=== PATIENT | female | born 1940 | race Caucasian/White ===

== ENCOUNTER 2019-11-25 10:52 | Day surgery (SDC) | payer MEDICARE, SELFPAY ==
--- NOTE | 2019-10-31 10:08 | PCM.HP.BLA ---
History and Physical Date of Admission: 11/03/19 Cristine Hernandez Builder 1940 ? ? REFERRING PHYSICIAN: Kayli Duncan MD ? CHIEF COMPLAINT: Inguinal Hernia Repair-2 ? HPI: The patient is a 78 year old female presents with possible right inguinal hernia repair. She denies pain in the area, occasional mild discomfort. She states that she notes a bulge in the area. Denies history of incarceration. Denies GI/ obstructive symptoms. Denies previous abdominal wall hernias. She states that she has noted this bulge for the past few months. ? CT scan 10/17/2019 IMPRESSION: Right inguinal hernia containing nonobstructed small bowel. Colonic diverticulosis with no features to indicate acute diverticulitis. ? PAST MEDICAL HISTORY ? Arthritis of both knees ? ? Mr Moyer/Dr Lino , Ortho 2016, 2015 ? Basal cell carcinoma 04/2018 ? Bilateral renal cysts ? ? Dr Shaver 2014, FU one year , Dr Ortiz saw 09/2010, to see in one year ? Colon cancer screening 07/14/2015 ? 07/2015 Colonoscopy Diverticulosis small portion of cecum not visualized Exam was otherwise normal repeat [address] Borjas(see scanned ? Diverticulosis of colon (without mention of hemorrhage) ? ? Hearing loss ? ? Bilateral hearing aids ? Nonspecific (abnormal) findings on radiological and other examination of lung field ? ? Dr [facility] saw 2008, 2009, released, CT Thorax R Pneumomatcele/Nodules since07/2007 ? Obesity (BMI 30.0-34.9) ? ? Osteopenia ? ? DXA scan 2018, 2014, 2008 ? Recurrent UTI ? ? Dr. Palomares ? Skin cancer/BCE ? ? Dr Bah saw 01/2016, Fu one year, 10/2015, FU 6 months, 2014, 01/2014 following ? Unspecified disorder of lipoid metabolism ? ? Unspecified essential hypertension ? ? Unspecified hypothyroidism ? ? Whooping cough due to Bordetella pertussis (p. pertussis) ? ? as a child ? PAST SURGICAL HISTORY ? PAST SURGICAL HISTORY OF ? 2004 ? Colonoscopy 2004.Diverticulosis Repeat 8 years ? PAST SURGICAL HISTORY OF ? 07/27/04 ? Dr OrtegaTransvaginal cystocele repair, rectocele repair and placement of porcine dermis mesh patch. ? PAST SURGICAL HISTORY OF ? ? ? Cataracts OS Dr Holt ? PAST SURGICAL HISTORY OF ? 07/2015 ? colonoscpy Diverticulosis, small portion of cecum not visualized, otherwise normal repat [address] Borjas (see scanned report) ? PAST SURGICAL HISTORY OF Left remote ? cyst removed from neck ? PAST SURGICAL HISTORY OF Left 05/16/2017 ? total knee ? PAST SURGICAL HISTORY OF ? ? ? mohs procedure for right cheek basal cell ? REMOVAL GALLBLADDER ? 07/23/03 ? Laparoscopic cholecystectomy with cholangiograms. ? REMOVE TONSILS/ADENOIDS,<12 Y/O ? AGE 7 ? Tonsil/adenoidectomy ? REPAIR UMBILICAL CHERELLE,5+Y/O,REDUC ? 02/02/05 ? Repair of ventral hernia with Ventrelex mesh. Right total knee replacement ? ? ? Current Outpatient Medications ? fluocinolone (SYNALAR) 0.025 % ointment Apply to affected area as directed. pea-sized amount to vulva qhs 2-3 nights a week ? cephALEXin (KEFLEX) 250 mg capsule Take 250 mg by mouth once daily. ? levothyroxine (SYNTHROID) 137 mcg tablet Take 1 tablet by mouth once daily. ? lisinopril (ZESTRIL, PRINIVIL) 5 mg tablet Take 1 tablet by mouth once daily. ? estradiol (ESTRACE) 0.01 % (0.1 mg/gram) vaginal cream Use 1 g vaginally one time a week. ? CRANBERRY FRUIT EXTRACT (CRANBERRY ORAL) Take by mouth every 48 hours. Takes 1 tablet daily ? ? calcium carbonate/vitamin d3(CALTRATE-600 PLUS VITAMIN D3 600 MG-400 UNIT TAB) Take one(1) tablet two(2) times daily. ? GLUCOSAMINE SULFATE 1,000 MG CAP TAKE ONE TAB DAILY ? CENTRUM SILVER TAB TAKE ONE TAB DAILY ? ? ALLERGIES: Bactrim [Sulfamethoxazole-Trimethoprim] ? PERSONAL HISTORY: ? Smoking status: Never Smoker ? Smokeless tobacco: Never Used Substance Use Topics ? Alcohol use: No ? ? Frequency: Never ? ? Drinks per session: Patient refused ? ? Binge frequency: Never ? Drug use: No ? FAMILY HISTORY ? Alzheimer's Disease Father ? ? Stroke Mother ? ? AGE 85 ? Hypertension Mother ? ? Heart Mother ? ? Ischemic Heart Disease Mother ? ? Psychiatry Maternal Grandfather ? ? SUICIDE ? other (ALS) Paternal Grandfather ? ? RICKY GERIGS DIS ? Stroke Maternal Grandmother ? ? other (No Ca Colon or Breast) Other ? ? Ovarian cancer No Family History ? ? other (no DM) Other ? ? ? REVIEW OF SYSTEMS: General: The patient denies fatigue, denies weight loss, denies weight gain, denies feeling hot, and denies feelings of cold. Eyes: The patient denies glaucoma, NOTES eye injury/surgery, wears glasses or contacts. Ear/Nose/Throat: The patient denies allergies, denies hayfever, denies ear infections, and denies bloody noses. Cardiovascular: The patient denies chest pain, denies heart disease, denies high blood pressure,denies cardiac stent, denies prior heart attack, NOTES irregular heart beat, denies high cholesterol, denies poor circulation, denies heart failure, other cardiac issues, denies claudication, denies cold feet, denies peripheral arterial stent. Respiratory: The patient denies tuberculosis, denies pneumonia, denies frequent cough, denies pulmonary embolism, denies shortness of breath, and denies coughing up blood. Gastrointestinal: The patient denies difficulty swallowing, denies acid reflux, denies ulcers, denies vomiting, denies jaundice/hepatitis, denies gallbladder problems, denies black or tarry stools, denies hemorrhoids, denies bleeding from rectum, NOTES diverticulitis, denies constipation, denies diarrhea, denies loss of stool control, and denies hernias. Kidney/Bladder: has urinary frequency/urgency, denies kidney stones, NOTES urine infections, and denies bloody urine. Skin: The patient NOTES a history of skin cancer, denies bleeding/changing moles, and denies a history of skin rash. Neurologic: The patient denies a history of epilepsy/convulsions, denies headaches, denies head/spinal injuries, and denies stroke/TIA. Psychiatric: The patient denies psychiatric medications, denies depression, and denies voices, denies substance abuse. Endocrine: The patient NOTES thyroid disorders, denies diabetes, and denies hormonal problems. Hematologic: The patient denies a history of bruising, denies bleeding, and denies anemia, denies blood clots. Infections: The patient denies a history of measles and mumps, denies rheumatic fever, and denies sexually transmitted diseases. Musculoskeletal: The patient denies back pain/injury, denies back problems, denies sciatica, NOTES knee/foot trouble, NOTES arthritis, or denies gout. ? PHYSICAL EXAMINATION: General: The patient is 78 year old female, well nourished, well hydrated in no acute distress. The patient is oriented to time, place, and person. VITALS: Blood pressure 158/84, pulse 88, temperature 36.3 ?C (97.3 ?F), temperature source Temporal, resp. rate 16, height 162.6 cm (5' 4), weight 91.6 kg (202 lb), SpO2 96 %. Body mass index is 34.67 kg/m?. Head ? Normocephalic. EOM intact with sclera clear and no icterus noted. Mouth with mucus membranes moist. Neck - supple with no jugular venous distention noted. Trachea is midline. Lungs ? clear to auscultation. Normal breath sounds. No rales/rhonchi/wheezing noted. No labored breathing noted, such as retractions. No cough heard. Heart ? normal S1 and S2 auscultated. No rubs/clicks/murmurs noted. Regular rate. Abdomen ? soft and benign. Normal bowel sounds Difficult to determine if any masses or organomegaly due to body habitus. Patient points to right groin area, I cannot detect a hernia but examination is suboptimal, patient has increased peripubic fatty tissues Extremities ? no calf tenderness noted. No pitting edema noted. Skin ? normal skin integrity. Neurological ? gait normal, no focal deficits noted. Psych ? calm and appropriate ? IMPRESSION: right inguinal hernia with incarcerated bowel ? PLAN: I have discussed the above with the patient. I have offered the patient the procedure of open right inguinal hernia repair with mesh. I have explained the procedure to the patient. I have counseled the patient as to the risks of the procedure, including but not limited to: infection, bleeding, injury to any blood vessels/nerves, scar tissue, injury to any intraabdominal organs, injury to bowel/bladder, intraabdominal abscess/bleeding, recurrence of hernia, wound infections, complications of anesthesia, postoperative pneumonia/cardiac problems/blood clots etc. the patient understands. She agrees to proceed. I have answered all questions to the patient?s satisfaction and the patient has no further questions.
--- NOTE | 2019-11-21 10:00 | EKG12_ITS ---
Test Reason : PREOP Blood Pressure : / mmHG Vent. Rate : 065 BPM Atrial Rate : 065 BPM P-R Int : 150 ms QRS Dur : 086 ms QT Int : 398 ms P-R-T Axes : 008 009 016 degrees QTc Int : 413 ms Normal sinus rhythm Normal ECG Confirmed by CRAIG BAPTISTE MD ([id number]), videotape editor CAMI SHANKS ([id number]) on 11/25/2019 2:37:46 PM Referred By: Tanya Beal Confirmed By:CRAIG BAPTISTE MD
[2019-11-21 11:23] LABS: Thyroid Stim Hormone (TSH) 1.26 uIU/mL (0.358-3.74)
[2019-11-25] VITALS (8 sets, daily range): BP systolic 158–179; BP diastolic 81–92; PULSE 66–89; RESP 16–18; TEMP 36.1–37.1; O2SAT 93–98; BMI 34.4
[2019-11-25] MEDS: Lactated Ringers 1,000 ML 75 ML IV (11:38)
--- NOTE | 2019-11-25 12:29 | DCINST_ITS ---
Discharge Diet: No Restrictions Discharge Activity: Return to Normal Activity, May not drive while taking narcotic pain medications. Lifting Restrictions: no lifting greater than 50 pounds for a month Call your doctor if your incision/area has: Continuous Slow Oozing, Foul Smelling Discharge Call your doctor if you observe: Fever of 101 or Higher Additional Dressing/Incision Instructions:: leave dressings in place. may get wet in shower. do not soak - no tub baths/swimming Allergies/Adverse Reactions: Allergies sulfamethoxazole [From Bactrim] Allergy (Verified 11/25/19 11:15) Hives trimethoprim [From Bactrim] Allergy (Verified 11/25/19 11:15) Hives Medications to take at Discharge Levothyroxine [Synthroid] 125 mcg PO DAILY 04/08/17 Lisinopril [Zestril] 5 mg PO DAILY 04/08/17 Calcium (Elemental) [Os-Warren 500] 500 mg PO BID 11/20/19 Cephalexin [Keflex] 250 mg PO DAILY 11/20/19 Gluc Fragoso/Chondro Fragoso A/Vit C/Mn [Glucosamine-Chondroitin Cap] 1 ea PO DAILY 11/20/19 Multivit-Min/Iron/Folic/Lutein [Centrum Silver Women Tablet] 1 ea PO DAILY 11/20/19 Primary Care Physician: Nelson Ascencio MD [Primary Care Provider] - Test Results: Test results from this visit will be discussed in further detail at your follow- up appointment, if applicable. Please Follow Up With: Tanya Beal MD - When: a virtual visit will be set up by our clinic, if any problems, please call
[2019-11-25] MEDS: Cefazolin 2 GM in 0.9% Normal Saline 100 ML IV (12:42)
--- NOTE | 2019-11-25 13:37 | OP.PCM_ITS ---
Report of Operation Date of Procedure: 11/25/19 Pre-Operative Diagnosis: right inguinal hernia with incarcerated bowel Post-Operative Diagnosis: right inguinal hernia with incarcerated bowel - direct and femoral Surgery/Procedure Performed:: right femoral/inguinal hernia repair with mesh Description of Surgical Findings:: right inguinal femoral hernia with incarcerated small bowel, right direct inguinal hernia, no indirect inguinal hernia sac noted configuration developer: Pravin Galeana Type of Anesthesia:: General Anesthesiologist: Kevin Rae Specimen's removed: none Estimated Blood Loss (mL): 20 ml Fluids Replaced: 1200 ml RL Description of Procedure: After informed consent was obtained, patient was brought to the Operating Room. Appropriate time out protocol was followed. She was then placed in the supine position. The patient was then placed under anesthesia. The lower torso and the right groin area and genitalia were then prepped with a surgical skin preparation and appropriate sterile surgical drapes were placed. The anatomical landmarks were identified and after anesthetizing the skin and subcutaneous tissues with 0.25% Marcaine with epinephrine, a transverse skin incision was made above the level of the internal inguinal ring. The subcutaneous tissues were then sharply dissected down to the external oblique fascia and any hemorrhage was adequately controlled with electrocoagulation. The external oblique was then divided obliquely along the fibers and a muscle-splitting incision was then made to divide the internal oblique musculature and fascia. The transversalis fascia was then identified and was then incised parallel to the inferior hypogastric vessels. The preperitoneal space was then entered. Blunt dissection was then done to identify out Facundo's ligament, the pubic tubercle and a large area surrounding these landmarks for placement of the mesh. The right iliac vessels were identified. The patient did have a small femoral hernia. The round ligament was identified, there was no indirect hernia sac noted. The patient did have a large direct fascial defect in Hasselbach's triangle. A large right sided Bard 3D mesh was then placed in the preperitoneal space such that it would be overlapping medially beyond the pubic tubercle and overlapping inferior to Facundo's ligament. A 5 mm tacker was then used to tack the medial aspect of the mesh to the pubic tubercle. The patient was then placed in the reversed [place] position to ensure that the mesh was laid out flattened against the anterior abdominal wall. The mesh covered the entire wound opening also. The internal oblique fascia was then closed using interrupted 0 prolene suture. One of the sutures was used to lock the mesh into position. Hemostasis was carefully controlled with electrocoagulation. The external oblique fascia was then reapproximated using a running 0 Vicryl suture. This was carefully done to avoid any entrapment of blood vessels/nerves. Kevin's fascia was closed using Vicryl suture in an interrupted simple fashion. The skin incision was closed with 4-0 Monocryl in a running subcuticular fashion. Cavilon and Steri-Strips were used to reinforce the skin closure and appropriate sterile dressing was applied. The patient was extubated. The patient was brought to the Recovery Room in stable condition. Grafts/Implants Used: Bard 3D mesh right sided large lot [id number] tacker LOT [id number] - Complications none noted - Admit VTE Documentation VTE Present on Admission: Yes VTE Mechan Device Prophylaxis: SCD's
[2019-11-25] MEDS: Bupivacaine 0.25% 30 ML Vial (13:45)
== END 2019-11-25 15:54 | disposition home or self-care (01) ==
LOC: SDC 10:53 → AC 10:54
PROVIDERS: Anesthesiology; PCP Family Medicine; Referring Provider Surgery; Visit Provider Surgery
PROC: (CPT 49505; principal; 2019-11-25 12:15)
DX: K41.30 Unilateral femoral hernia, with obstruction, without gangrene, not specified as recurrent (principal); K40.90 Unilateral inguinal hernia, without obstruction or gangrene, not specified as recurrent; K58.9 Irritable bowel syndrome, unspecified; I10 Essential (primary) hypertension; E03.9 Hypothyroidism, unspecified; E66.9 Obesity, unspecified; M81.0 Age-related osteoporosis without current pathological fracture; Z79.899 Other long term (current) drug therapy; Z11.59 Encounter for screening for other viral diseases; Z85.828 Personal history of other malignant neoplasm of skin
CPT/HCPCS: 49505; 49553; 36415; 84443; 87635; 93005; G2023; J7120; C1781; J2405; U0004

== ENCOUNTER 2022-06-17 02:11 | Inpatient (IN) | payer MEDICARE, SELFPAY ==
[2022-06-17] VITALS (13 sets, daily range): BP systolic 127–152; BP diastolic 60–73; PULSE 69–99; RESP 15–22; TEMP 36.2–37.1; O2SAT 80–99; BMI 35.0; BMI 33.3
--- NOTE | 2022-06-17 02:28 | EKG12_ITS ---
Test Reason : DYSRHYTHMIA Blood Pressure : / mmHG Vent. Rate : 101 BPM Atrial Rate : 101 BPM P-R Int : 144 ms QRS Dur : 092 ms QT Int : 342 ms P-R-T Axes : 022 012 003 degrees QTc Int : 443 ms Sinus tachycardia Inferior infarct , age undetermined Abnormal ECG Confirmed by GANGA PEREZ, TOSHIA ([id number]), electronic news gathering editor AUDREY SMITH ([id number]) on 06/19/2022 1:05:59 PM Referred By: SCOOTER Confirmed By:TOSHIA SCHULER MD
--- NOTE | 2022-06-17 02:40 | EDS_ITS ---
HPI History of Present Illness Chief Complaint: Flank Pain Informant: patient Narrative Narrative: Patient presents with episode of right upper quadrant pain. She describes it as being below my rib. She states it is now gone. She really denied any notable cough. She denied it going up into her chest. It may have gone into her back just slightly but mostly was anteriorly. Nothing seem to make it better or worse but it is gone. She has history of frequent UTIs but is not having urinary symptoms. She is on longstanding cephalexin for this. She has had prior cholecystectomy in approximately 2003. [facility] Medical History Hearing loss, left Hearing loss, right Hernia Hypertension Hypothyroidism Osteoporosis Wears hearing aid in both ears Home Medications levothyroxine 125 mcg tablet 125 mcg PO DAILY 04/08/17 [History Last Taken 11/25/19 07:30 125 MCG] lisinopril 5 mg tablet 5 mg PO DAILY 04/08/17 [History Last Taken 11/25/19 07:30 5 MG] calcium carbonate 500 mg calcium (1,250 mg) tablet 500 mg PO BID 11/20/19 [History Last Taken Unknown] cephalexin 250 mg capsule 250 mg PO QMWF 11/20/19 [History Last Taken Unknown] ecllkjgrpjj-ghwkdkkpf-cav C-Mn 500 mg-400 mg capsule 1 ea PO BID 11/20/19 [History Last Taken Unknown] multivit with ogozloed-qacu-AW-lutein 8 mg iron-400 mcg-300 mcg tablet 1 ea PO DAILY 11/20/19 [History Last Taken Unknown] Allergy/AdvReac Type Severity Reaction Status Date / Time sulfamethoxazole Allergy Hives Verified 06/17/22 02:15 [From Bactrim] trimethoprim [From Bactrim] Allergy Hives Verified 06/17/22 02:15 Surgical History History of cholecystectomy History of left knee replacement History of total right knee replacement Social History Smoking Status: Never smoker ROS ROS ED Constitutional Constitutional ED: Denies fever(s) or subjective ENT ENT ED: Denies rhinorrhea or sore throat Cardiovascular Cardiovascular: Denies chest pain or palpitations Respiratory/Chest Respiratory/Chest: Denies cough or dyspnea Gastrointestinal Gastrointestinal: Reports abdominal pain; Denies constipation, diarrhea, melena, nausea or vomiting Genitourinary Genitourinary ED: Reports other Details: She has a history of frequent UTIs so she is on cephalexin prophylactically. But she is having no urinary symptoms. ; Denies dysuria, hematuria or urinary frequency Musculoskeletal Musculoskeletal: Denies back pain or neck pain Integumentary Denies rash Neurologic Neurologic: Denies headache(s) or paresthesias Psychiatric Psychiatric: Reports anxiety Hematologic/Lymphatic Hematologic/Lymphatic: Denies easy bleeding, easy bruising or lymphadenopathy Allergic/Immunologic Allergic/Immunologic ED: Denies urticaria EXAM Physical Exam Const Vital Signs: 06/17/22 02:12 06/17/22 02:15 06/17/22 02:15 Temperature 97.2 F L 97.2 F L Temperature Source Temporal Temporal Pulse Rate 99 99 Respiratory Rate 15 15 Respiratory Effort Normal Non-Labored Respiratory Pattern Normal Blood Pressure 152/62 H 152/62 H Blood Pressure Mean 92 92 Pulse Ox 99 99 Oxygen Delivery Method Room Air Room Air Oxygen Flow Rate (L/min) 06/17/22 06:12 06/17/22 06:30 Temperature Temperature Source Pulse Rate 97 Respiratory Rate 22 H Respiratory Effort Respiratory Pattern Blood Pressure 127/63 H Blood Pressure Mean 84 Pulse Ox 80 90 Oxygen Delivery Method Room Air Nasal Cannula Oxygen Flow Rate (L/min) 4 Positive well nourished and well developed General Appearance ED: well developed and NAD; Negative for cyanotic or diaphoretic HEENT Reports moist mucous membranes Neck no lymphadenopathy Chest Wall inspection of chest normal Resp normal respiratory effort Auscultation: Negative for wheezes Cardio regular rate and regular rhythm GI normal to inspection, nondistended, normoactive bowel sounds GI Narrative: There is no tenderness at this time. When I press in the right upper quadrant she states that is where the pain was. It seems to be below the rib. However, she is not having the symptom right now. Back/Spine no CVA tenderness Extremity General Extremety ED: Negative for tenderness Neuro Sensorium / Orientation: alert Psych mental status grossly normal Skin no rashes or lesions noted MDM MDM MDM Narrative Medical decision making narrative: 03:45 patient's recheck. She we were talking about her results. She developed the pain in the right upper quadrant again. It seems more anteriorly but does go a little laterally. It is clearly under the ribs. She states there is no chest pain or trouble breathing. We talked about her urination she states she has occasional dribbling at night which is common. But she has not been having dysuria frequency or urgency. Her urine is a little concerning for UTI but that does not fully explain all of her symptoms. She is also on antibiotics routinely for this. White count had minimal elevation of 12.6. Hemoglobin was minimally low at 11.7 platelets were normal. Electrolytes were unremarkable. Mild dehydration with elevated BUN to creatinine ratio. Glucose was only minimally elevated at 148. Liver function test overall look normal. With the pain now coming back, we will do imaging of the abdomen. I will give her a little meds for pain and nausea. She will be rechecked. She did also start crying. She has been under quite a bit of stress due to what sounds like illness with her . She has not been eating well because of this. But I do not think I can use this to explain all her abdominal symptoms. I think we need to make sure there is no acute intra-abdominal process. We will get the imaging, lipase level and recheck. Imaging did show a cavitary lesion pneumonia at the right lower lobe. With asking patient again, she does states she has had some cough for the last few days but did not think much of it because it was very minor. No reported fevers. But all of her pain is right upper quadrant I think this is likely from diaphragmatic irritation. Although she states it is below the rib I think this cavitary lesion is likely causing her symptoms. There is a large right inguinal hernia. However, she had this repaired several years ago. It has come back. She states when she stands up its even worse. Its not hurting at all in the hernia. I pressed quite firmly all over the area. There is no discomfort in this at all. I discussed case with Dr. Archer. We will send further studies, initiate antibiotics, and admit her. This may be infectious. It is certainly possible that this is cancerous also. Hospitalist was contacted. We did not do a CTA. I do not think a PE is likely the source of her pain and cavitary lesion. Lab Data Attestation: I reviewed the patient's lab results. Labs: Laboratory Results - last 24 hr 12/17/22 12/17/22 12/17/22 02:45 02:45 02:45 WBC 12.6 H RBC 3.83 L Hgb 11.7 L Hct 35.2 L MCV 91.9 MCH 30.5 MCHC 33.2 RDW Std Deviation 46.3 H RDW Coeff of Bishop 13.6 Plt Count 244 MPV 10.8 Immature Gran % (Auto) 0.600 Neut % (Auto) 81.1 H Lymph % (Auto) 9.1 L [place] % (Auto) 8.8 Eos % (Auto) 0.1 Baso % (Auto) 0.3 Absolute Neuts (auto) 10.2 H Absolute Lymphs (auto) 1.14 Nucleated RBC % 0 ESR Sodium 137 Potassium 3.5 Chloride 104 Carbon Dioxide 29.0 Anion Gap 4 L BUN 17 Creatinine 0.79 Estim Creat Clear Calc 39.39 Est GFR (MDRD) Af Amer 90 Est GFR (MDRD) Non-Af 74 BUN/Creatinine Ratio 21.5 H Glucose 148 H Calcium 9.0 Total Bilirubin 0.70 AST 12 L ALT 22 Alkaline Phosphatase 81 Total Protein 7.6 Albumin 3.1 L Globulin 4.5 H Albumin/Globulin Ratio 0.7 L Lipase Urine Color Yellow Urine Clarity Sl. Cloudy Urine pH 6.0 Ur Specific [place] 1.020 Urine Protein 100 H Urine Glucose (UA) Normal Urine Ketones 50 H Urine Occult Blood 150 H Urine Nitrite Positive H Urine Bilirubin Negative Urine Urobilinogen Normal Ur Leukocyte Esterase 500 H Urine RBC 0-5 SEEN Urine WBC 10-25 SEEN Ur Squamous Epith Cells 0-5 SEEN Urine Bacteria 3+ Urine Mucus 1+ 06/17/22 06/17/22 02:45 02:45 WBC RBC Hgb Hct MCV MCH MCHC RDW Std Deviation RDW Coeff of Bishop Plt Count MPV Immature Gran % (Auto) Neut % (Auto) Lymph % (Auto) [place] % (Auto) Eos % (Auto) Baso % (Auto) Absolute Neuts (auto) Absolute Lymphs (auto) Nucleated RBC % ESR 74 H Sodium Potassium Chloride Carbon Dioxide Anion Gap BUN Creatinine Estim Creat Clear Calc Est GFR (MDRD) Af Amer Est GFR (MDRD) Non-Af BUN/Creatinine Ratio Glucose Calcium Total Bilirubin AST ALT Alkaline Phosphatase Total Protein Albumin Globulin Albumin/Globulin Ratio Lipase 40 L Urine Color Urine Clarity Urine pH Ur Specific [place] Urine Protein Urine Glucose (UA) Urine Ketones Urine Occult Blood Urine Nitrite Urine Bilirubin Urine Urobilinogen Ur Leukocyte Esterase Urine RBC Urine WBC Ur Squamous Epith Cells Urine Bacteria Urine Mucus Radiography Diagnostic Testing: Clinical Impression(s) from Imaging Studies Abdomen/Pelvis CT 06/17/22 03:47 IMPRESSION: 1. Large right inguinal region hernia containing several loops of nondilated small bowel; these appear to be potentially incarcerated. No evidence for strangulation. 2. Consolidation involving the right lower lobe with large cavitary component measuring up to 4.4 cm; this is concerning for an infectious process at this time; follow-up to resolution. Electronically Signed: Danny Castillo MD at 4:34 EST Reading Location ID and State: [id number] / [employer] Tel , Service support , Chest CT 06/17/22 04:07 IMPRESSION: Large area of consolidation involving the right lower lobe posteriorly with 4.9 thick-walled cavitary lesion within the area of consolidation. Electronically Signed: Danny Castillo MD at 4:38 EST , See above for CT results. EKG Initial EKG: Comments: EKG done for upper abdominal pain read by me showed a normal sinus rhythm with borderline tachycardic rate at 101. No acute ST elevation or depression. WI interval, QRS duration and QTc normal. Discharge Plan Dx/Rx/DC Orders Clinical Impression: Cavitary lesion of lung Disposition Disposition: Acute Care Hospital [facility]
[2022-06-17 03:02] LABS: Absolute Lymphocyte Count 1.14 X10^3/uL (0.83-4.51); Absolute Neutrophil Count 10.2 X10^3/uL (2.0-7.7); Basophil# 0.04 X10^3/uL; Basophil% 0.3 % (0-1); Eosinophil# 0.01 X10^3/uL; Eosinophils% 0.1 % (0-5); Hematocrit 35.2 % (37-47); Hemoglobin 11.7 g/dL (12.0-15.0); Lymphocyte # 1.14 X10^3/ul (0.83-4.51); Lymphocyte % 9.1 % (19-41); Mean Corp Hgb Conc 33.2 g/dL (32-36); Mean Corpuscular Hgb 30.5 pg (27.0-32.0); Mean Corpuscular Volume 91.9 fL (81-99); Mean Platelet Vol. 10.8 fl (6.2-12.0); Monocyte# 1.11 X10^3/uL; Monocyte% 8.8 % (0-10); NRBC Flagged by Analyzer 0 % (0-5); Neutrophil # 10.21 X10^3/uL (2.7-7.7); Neutrophil % 81.1 % (47-70); Platelet Count 244 K/mm3 (150-450); RBC Distribution Width CV 13.6 % (11.6-14.6); RBC Distribution Width SD 46.3 fl (35.1-43.9); Red Blood Count 3.83 M/mm3 (4.2-5.4); White Blood Count 12.6 K/mm3 (4.4-11.0)
[2022-06-17 03:11] LABS: Color, Urine Yellow (Yellow); Glucose, Dipstick Normal (Normal); Ketone-Dipstick 50 mg/dl (Negative); Leukocyte Esterase-Dipstick 500 /ul (Negative); Nitrite-Dipstick Positive (Negative); Occult Blood-Urine 150 /ul (Negative); Protein-Dipstick 100 mg/dl (Negative); Urine Bilirubin Dipstick Negative (Negative); Urine Clarity Sl. Cloudy (Clear); Urine Urobilinogen Normal (Normal)
[2022-06-17 03:24] LABS: Bacteria 3+ /hpf (None Seen); Mucous, Urine 1+ /hpf (<or=2+); Red Blood Cells-Urine 0-5 SEEN /hpf (0-5); Squamous Epithelial Cells - UA 0-5 SEEN /hpf (5-10); White Blood Cells 10-25 SEEN /hpf (0-5)
[2022-06-17 03:31] LABS: ALB/GLOB Ratio 0.7 RATIO (0.9-2.4); AST(SGOT) 12 U/L (15-37); Alanine Aminotransfer ALT/SGPT 22 U/L (13-56); Albumin, Serum 3.1 g/dL (3.2-5.0); Alkaline Phosphatase 81 U/L (45-117); Anion Gap 4 (5-15); BUN 17 mg/dL (7-18); BUN/Creat Ratio 21.5 RATIO (10-20); Chloride 104 mmol/L (98-107); Creatinine, Serum 0.79 mg/dL (0.55-1.02); EST Glomerular Filtration Rate 74 mL/min (>60); Est Glom Filt Rate - Afr Amer 90 mL/min (>60); Estimated Creatinine Clearance 39.39 ml/min; Globulin 4.5 g/dL (2.2-4.2); Glucose 148 mg/dL (74-106); Potassium 3.5 mmol/L (3.5-5.1); Protein, Total 7.6 g/dL (6.4-8.2); Sodium Level 137 mmol/L (136-145)
--- NOTE | 2022-06-17 03:47 | CT_ITS ---
EXAM: CT ABDOMEN AND PELVIS WITH INTRAVENOUS CONTRAST CLINICAL INDICATION: right side pain TECHNIQUE: Helically acquired images were obtained of the abdomen and pelvis with intravenous contrast. CTDIvol = ( 22.39 ) mGy, DLP = ( 2276.33 ) mGycm This CT exam was performed using one or more of the following dose reduction techniques: automated exposure control, adjustment of the mA and/or kV according to patient size, and/or use of iterative reconstruction technique. This report was created using [employer] report generation technology. CONTRAST: IV 100mL [id number] COMPARISON: None. FINDINGS: LOWER THORAX: Consolidation involving the right lower lobe with large cavitary component measuring up to 4.4 cm. No cardiomegaly. No significant pericardial effusion. ABDOMEN: LIVER: Unremarkable. Homogeneous. No focal mass. GALLBLADDER AND BILE DUCTS: Prior cholecystectomy. No intra- or extrahepatic biliary ductal dilation. PANCREAS: Unremarkable. No focal cystic or solid mass. SPLEEN: Unremarkable. Normal size without focal cystic or solid mass. ADRENALS: Unremarkable. No nodules. KIDNEYS AND URETERS: Cysts involving the left renal sinus region. No definite obstructive uropathy. Small cysts are noted involving the right and left renal parenchyma also. No solid renal masses and no adnexal masses. Normal renal size and position. STOMACH AND BOWEL: Distal colonic diverticulosis but no acute diverticulitis or colitis. No bowel obstruction. Large right inguinal region hernia containing several loops of nondilated small bowel; these appear to be potentially incarcerated. No evidence for strangulation or inflammation no abnormal bowel dilatation. PELVIS: APPENDIX: No evidence of acute appendicitis. BLADDER: Unremarkable. REPRODUCTIVE: Unremarkable as visualized. No mass. ABDOMEN and PELVIS: INTRAPERITONEAL SPACE: No free air or free fluid. BONES/JOINTS: No suspicious lytic or sclerotic lesion of bone. Degenerative changes of the spine. SOFT TISSUES: See above. VASCULATURE: Unremarkable. Abdominal aorta is non-dilated. LYMPH NODES: Unremarkable. No enlarged lymph nodes. OTHER FINDINGS: For findings above the diaphragm to please refer to same-day chest CT. CT/Abdomen/Pelvis W IV Cont ONLY IMPRESSION: 1. Large right inguinal region hernia containing several loops of nondilated small bowel; these appear to be potentially incarcerated. No evidence for strangulation. 2. Consolidation involving the right lower lobe with large cavitary component measuring up to 4.4 cm; this is concerning for an infectious process at this time; follow-up to resolution. Electronically Signed: Danny Castillo MD at 4:34 EST ,
[2022-06-17] MEDS: Morphine 2 MG/ML Syringe IV (03:52)
[2022-06-17] MEDS: Ondansetron 4 MG/2 ML Vial IV (03:52)
[2022-06-17 04:00] LABS: Lipase 40 U/L (73-393)
--- NOTE | 2022-06-17 04:07 | CT_ITS ---
EXAM: CT CHEST WITHOUT INTRAVENOUS CONTRAST CLINICAL INDICATION: mass, pain TECHNIQUE: Helically acquired images were obtained of the chest without intravenous contrast. CTDIvol = ( 17.32 ) mGy, DLP = ( 593.05 ) mGycm This CT exam was performed using one or more of the following dose reduction techniques: automated exposure control, adjustment of the mA and/or kV according to patient size, and/or use of iterative reconstruction technique. This report was created using [employer] report generation technology. COMPARISON: None. FINDINGS: LUNGS AND PLEURAL SPACES: Small right pleural effusion. Large area of consolidation involving the right lower lobe posteriorly with 4.9 thick-walled cavitary lesion within the area of consolidation. Subsegmental atelectasis at the posterior aspect of the left lower lobe. No pneumothorax or significant pleural effusion on the left. HEART: Unremarkable. Heart size is normal. No pericardial effusion. No significant coronary artery calcifications. MEDIASTINUM: Reactive mediastinal and hilar adenopathy. No hiatal hernia. THYROID: Unremarkable. No thyroid lesions. BONES/JOINTS: Unremarkable. No suspicious lytic or blastic abnormality. VASCULATURE: Unremarkable. Thoracic aorta is non-dilated. OTHER FINDINGS: for findings below the diaphragm, please refer to same-day CT abdomen and pelvis. CT/Chest without Contrast IMPRESSION: Large area of consolidation involving the right lower lobe posteriorly with 4.9 thick-walled cavitary lesion within the area of consolidation. Electronically Signed: Danny Castillo MD at 4:38 EST ,
[2022-06-17 05:45] LABS: Erythrocyte Sedimentation Rate 74 mm/hr (0-30)
[2022-06-17] MEDS: Tuberculin,Purif.prot.deriv. 50 TU/ML Vial 0.1 ML ID (06:09)
--- NOTE | 2022-06-17 06:09 | NURSING ---
TB test given in RFA
--- NOTE | 2022-06-17 06:37 | HP.PCM.HOS_ITS ---
HPI - General General Date of Admission: 06/17/22 Date of Service: 06/17/22 Chief Complaint: R sided abdominal pain HPI Narrative Patient is a 81-year-old female with a history of hypothyroidism, recurrent UTIs on [facility] MWF, and hypertension who presented to [facility] 06/17/2022 with right upper quadrant pain this evening below her ribs. CT abdomen performed in ED which showed something above the diaphragm on the right side. CT chest was then obtained and it showed a large area of consolidation involving the right lower lobe posteriorly with a 4.9mm thick walled cavitary lesion within the area of consolidation. ED physician contacted pulmonology who recommended admission, cultures, antibiotics and further work-up. Hospitalist consulted for admission. Patient evaluated with daughter at bedside. She reports that she has had a cough for several days with significant mucus production, on had drenching night sweats and has had poor p.o. intake over the past few days and estimates she lost 5 pounds. Not significantly short of breath. Her main complaint was the right flank/upper abdominal pain that has been present for last several days but at 12:30 AM became significant and that is when she presented here. When she lays still it is manageable when she moves around is when the pain flares. Denies fever, no chest pain, no swelling in her extremities, no smoking, no recent travel. No other complaints today aside from psychosocial stressors. [facility] Medical History (Updated 06/17/22 @ 06:[address] Subha Lino MD) Hearing loss, left Hearing loss, right Hernia Hypertension Hypothyroidism Osteoporosis Wears hearing aid in both ears Home Medications levothyroxine 125 mcg tablet 125 mcg PO DAILY 04/08/17 [History Last Taken 11/25/19 07:30 125 MCG] lisinopril 5 mg tablet 5 mg PO DAILY 04/08/17 [History Last Taken 11/25/19 07:30 5 MG] calcium carbonate 500 mg calcium (1,250 mg) tablet 500 mg PO BID 11/20/19 [History Last Taken Unknown] cephalexin 250 mg capsule 250 mg PO QMWF 11/20/19 [History Last Taken Unknown] lxgiuspihxo-rlnezkyts-vlw C-Mn 500 mg-400 mg capsule 1 ea PO BID 11/20/19 [History Last Taken Unknown] multivit with znzfbqfl-osly-MD-lutein 8 mg iron-400 mcg-300 mcg tablet 1 ea PO DAILY 11/20/19 [History Last Taken Unknown] Allergy/AdvReac Type Severity Reaction Status Date / Time sulfamethoxazole Allergy Hives Verified 06/17/22 02:15 [From Bactrim] trimethoprim [From Bactrim] Allergy Hives Verified 06/17/22 02:15 Surgical History (Updated 06/17/22 @ 06:29 by Sara M Self) History of cholecystectomy History of left knee replacement History of total right knee replacement Social History Smoking Status: Never smoker ROS Constitutional Constitutional: Reports night sweats and other Details: Episode of night sweats on , poor p.o. and feels she may have lost weight ; Denies chills or fever(s) Eyes Eyes: Denies change in vision ENT HEENT: Denies nasal congestion or sore throat Cardiovascular Cardiovascular: Denies chest pain or palpitations Respiratory/Chest Respiratory/Chest: Reports cough and productive cough Gastrointestinal Gastrointestinal: Reports other Details: No changes in her bowels, high upper ab domen/flank pain on the right side Genitourinary Genitourinary: Reports other Details: denies changes in urination Musculoskeletal Musculoskeletal: Denies joint pain Neurologic Neurologic: Denies dizziness, focal weakness, headache(s), numbness or tingling Psychiatric Psychiatric: Reports other Details: Has had recent stress Hematologic/Lymphatic Hematologic/Lymphatic: Denies easy bleeding Allergic/Immunologic Allergic/Immunologic: Reports other Details: denies rashes Vital Signs Vital Signs Vital Signs: 06/17/22 02:12 06/17/22 02:15 06/17/22 02:15 Temperature 97.2 F L 97.2 F L Temperature Source Temporal Temporal Pulse Rate 99 99 Respiratory Rate 15 15 Respiratory Effort Normal Non-Labored Respiratory Pattern Normal Blood Pressure 152/62 H 152/62 H Blood Pressure Mean 92 92 Pulse Ox 99 99 Oxygen Delivery Method Room Air Room Air Oxygen Flow Rate (L/min) 06/17/22 06:12 06/17/22 06:30 Temperature Temperature Source Pulse Rate 97 Respiratory Rate 22 H Respiratory Effort Respiratory Pattern Blood Pressure 127/63 H Blood Pressure Mean 84 Pulse Ox 80 90 Oxygen Delivery Method Room Air Nasal Cannula Oxygen Flow Rate (L/min) 4 Weight Weight: 92.7 kg Body Mass Index (BMI) 35.0 Physical Exam Const alert and no apparent distress Constitutional Narrative: Oriented HEENT head/scalp atraumatic Eyes Eyes Narrative: EOM grossly intact, anicteric Neck supple Resp normal respiratory effort Resp Narrative: Crackles at the bases bilaterally Cardio regular rate and regular rhythm GI soft to palpation and non-distended GI Narrative: Does have pain on palpation under right rib cage Extremity Extremity Narrative: No edema appreciated Neuro moves all extremities Neuro Narrative: No overt focal deficits appreciated Psych Psych Narrative: Appears anxious at times, cooperative Results Lab / Micro Data Result Diagrams: 06/17/22 02:45 06/17/22 02:45 Labs: Laboratory Results - last 24 hr 06/17/22 02:45: WBC 12.6 H, RBC 3.83 L, Hgb 11.7 L, Hct 35.2 L, MCV 91.9, MCH 30.5, MCHC 33.2, RDW Std Deviation 46.3 H, RDW Coeff of Bishop 13.6, Plt Count 244, MPV 10.8, Immature Gran % (Auto) 0.600, Neut % (Auto) 81.1 H, Lymph % (Auto) 9.1 L, [place] % (Auto) 8.8, Eos % (Auto) 0.1, Baso % (Auto) 0.3, Absolute Neuts (auto) 10.2 H, Absolute Lymphs (auto) 1.14, Nucleated RBC % 0 06/17/22 02:45: Sodium 137, Potassium 3.5, Chloride 104, Carbon Dioxide 29.0, Anion Gap 4 L, BUN 17, Creatinine 0.79, Estim Creat Clear Calc 39.39, Est GFR (MDRD) Af Amer 90, Est GFR (MDRD) Non-Af 74, BUN/Creatinine Ratio 21.5 H, Glucose 148 H, Calcium 9.0, Total Bilirubin 0.70, AST 12 L, ALT 22, Alkaline Phosphatase 81, Total Protein 7.6, Albumin 3.1 L, Globulin 4.5 H, Alb umin/Globulin Ratio 0.7 L 06/17/22 02:45: Urine Color Yellow, Urine Clarity Sl. Cloudy, Urine pH 6.0, Ur Specific [place] 1.020, Urine Protein 100 H, Urine Glucose (UA) Normal, Urine Ketones 50 H, Urine Occult Blood 150 H, Urine Nitrite Positive H, Urine Bilirubin Negative, Urine Urobilinogen Normal, Ur Leukocyte Esterase 500 H, Urine RBC 0-5 SEEN, Urine WBC 10-25 SEEN, Ur Squamous Epith Cells 0-5 SEEN, Urine Bacteria 3+, Urine Mucus 1+ 06/17/22 02:45: Lipase 40 L 06/17/22 02:45: ESR 74 H Radiology Impression Abdomen/Pelvis CT 06/17/22 03:47 IMPRESSION: 1. Large right inguinal region hernia containing several loops of nondilated small bowel; these appear to be potentially incarcerated. No evidence for strangulation. 2. Consolidation involving the right lower lobe with large cavitary component measuring up to 4.4 cm; this is concerning for an infectious process at this time; follow-up to resolution. Electronically Signed: Danny Castillo MD at 4:34 EST , Chest CT 06/17/22 04:07 IMPRESSION: Large area of consolidation involving the right lower lobe posteriorly with 4.9 thick-walled cavitary lesion within the area of consolidation. Electronically Signed: Danny Castillo MD at 4:38 EST , Assessment & Plan Assessment/Plan (1) Cavitary lesion of lung: PLAN: Plan #Right lower lobe cavitary lesion with pain WBC 12.6, no fever, O2 sat 99% on RA but has had the persistent pain and lesion on CT chest that showed a large area of consolidation involving the right lower lobe posteriorly with a 4.9 thick-walled cavitary lesion within the area of consolidation Pulmonology contacted by ED physician and cultures and antibiotics as well as admission and further work-up recommended Consult pulmonology Will send cultures QuantiFERON ordered, blood cultures I/S Will continue zosyn for broad coverage and add linezolid for nocardia, pt allg to bactrim #Chronic UTIs No current symptoms Holding home ppx given alternate abx #hypothyroidism Cont Synthroid #DVT ppx: Lovenox Subha Lino MD Charges/Coding Visit Charges Inpatient E&M: 14060 Init Hosp L2
[2022-06-17] MEDS: 0.9% Saline Lock 10 ML Syringe IV ×2 (09:57→22:10)
[2022-06-17] MEDS: Enoxaparin 40 MG/0.4 ML Syringe SC (11:37)
[2022-06-17] MEDS: Levothyroxine 125 MCG Tablet PO (11:37)
[2022-06-17] MEDS: Lisinopril 5 MG Tablet PO (11:38)
--- NOTE | 2022-06-17 12:24 | PHA.PHARE_ITS ---
Consult Pharmacy has been consulted to manage selected antiobiotic: Vancomycin Type of Consult: New start Labs: Sodium 137 mmol/L (136-145) 06/17/22 02:45 Potassium 3.5 mmol/L (3.5-5.1) 06/17/22 02:45 Chloride 104 mmol/L (98-107) 06/17/22 02:45 Carbon Dioxide 29.0 mmol/L (21.0-32.0) 06/17/22 02:45 Anion Gap 4 (5-15) L 06/17/22 02:45 BUN 17 mg/dL (7-18) 06/17/22 02:45 Creatinine 0.79 mg/dL (0.55-1.02) 06/17/22 02:45 Est GFR (MDRD) Af Amer 90 mL/min (>60) 06/17/22 02:45 Est GFR (MDRD) Non-Af 74 mL/min (>60) 06/17/22 02:45 BUN/Creatinine Ratio 21.5 RATIO (10-20) H 06/17/22 02:45 Glucose 148 mg/dL (74-106) H 06/17/22 02:45 Microbiology: Microbiology 06/17/22 09:35 Nasal Secretion SARS-CoV-2 & FLU Antigen (Rapid) - Final Weight used for dosin.1 kg Estimated Creatinine Clearance: 61ML/MIN Goal Trough: 15-20 mcg/mL Pharmacy Plan for Drug Dosing: Give initial dose of 2000mg IV x1, then continue with 1000mg q12h per [facility] dosing protocol. Will get a trough before the 4th total dose. The patient's CrCl of 61 ml/min was calculated using an adjusted body weight of 68.1kg. Pharmacy Service will continue to monitor and adjust dosing as required. Follow-Up Labs: Trough Vancomycin Labs to be done on [date and time ordered]: 06/18 23:30
--- NOTE | 2022-06-17 15:15 | CON.PCM.CC_ITS ---
Assessment & Plan Assessment/Plan (1) Cavitary lesion of lung: PLAN: Appearance consistent with a lung abscess On further questioning she states that food sometimes gets stuck in her throat when eating - mostly pretzels This would be a good location for chronic aspiration Other differential would be a lingering bacterial process Continue broad antibiotics for now Follow blood cultures and quantiferon but doubt Tb If symptoms / clinical condition declines, may need bronchoscopy for BAL Recommend ID consult HPI Consult Data Date of Consult: 06/17/22 HPI Narrative Reason for Consultation: RLL cavitary lesion HPI Narrative: Patient is a 81-year-old female with a history of hypothyroidism, recurrent UTIs on [employer], and hypertension who presented to [facility] 06/17/2022 with right upper quadrant pain this evening below her ribs. CT abd omen performed in ED which showed something above the diaphragm on the right side.? CT chest was then obtained and it showed a large area of consolidation involving the right lower lobe posteriorly with a 4.9mm thick walled cavitary lesion within the area of consolidation.? ED physician contacted pulmonology who recommended admission, cultures, antibiotics and further work-up.? Hospitalist consulted for admission.? Patient evaluated with daughter at bedside.? She reports that she has had a cough for several days with significant mucus production, on had drenching night sweats and has had poor p.o. intake over the past few days and estimates she lost 5 pounds.? Not significantly short of breath.? Her main complaint was the right flank/upper abdominal pain that has been present for last several days but at 12:30 AM became significant and that is when she presented here.? When she lays still it is manageable when she moves around is when the pain flares.? Denies fever, no chest pain, no swelling in her extremities, no smoking, no recent travel.? No other complaints today aside from psychosocial stressors. [facility] Medical History Hearing loss, left Hearing loss, right Hernia Hypertension Hypothyroidism Osteoporosis Wears hearing aid in both ears Home Medications levothyroxine 125 mcg tablet 137 mcg PO DAILY hypothyroid 04/08/17 [History Last Taken 11/25/19 07:30 125 MCG] lisinopril 5 mg tablet 5 mg PO DAILY 04/08/17 [History Last Taken 11/25/19 07:30 5 MG] calcium carbonate 500 mg calcium (1,250 mg) tablet 500 mg PO BID 11/20/19 [History Last Taken Unknown] cephalexin 250 mg capsule 250 mg PO QMWF 11/20/19 [History Last Taken Unknown] xmhbnqykdvz-rxcatxgcf-mxk C-Mn 500 mg-400 mg capsule 1 ea PO BID 11/20/19 [History Last Taken Unknown] multivit with grbtvkiz-ylqb-MB-lutein 8 mg iron-400 mcg-300 mcg tablet 1 ea PO DAILY 11/20/19 [History Last Taken Unknown] Allergy/AdvReac Type Severity Reaction Status Date / Time sulfamethoxazole Allergy Hives Verified 06/17/22 02:15 [From Bactrim] trimethoprim [From Bactrim] Allergy Hives Verified 06/17/22 02:15 Surgical History History of cholecystectomy History of left knee replacement History of total right knee replacement Social History Smoking Status: Never smoker ROS ROS Narrative Constitutional Constitutional: Reports night sweats and other Details: Episode of night sweats on , poor p.o. and feels she may have lost weight ; Denies chills or fever(s) Eyes Eyes: Denies change in vision ENT HEENT: Denies nasal congestion or sore throat Cardiovascular Cardiovascular: Denies chest pain or palpitations Respiratory/Chest Respiratory/Chest: Reports cough and productive cough Gastrointestinal Gastrointestinal: Reports other Details: No changes in her bowels, high upper abdomen/flank pain on the right side Genitourinary Genitourinary: Reports other Details: denies changes in urination Musculoskeletal Musculoskeletal: Denies joint pain Neurologic Neurologic: Denies dizziness, focal weakness, headache(s), numbness or tingling Psychiatric Psychiatric: Reports other Details: Has had recent stress Hematologic/Lymphatic Hematologic/Lymphatic: Denies easy bleeding Allergic/Immunologic Allergic/Immunologic: Reports other Details: denies rashes Physical Exam Narrative Const alert and no apparent distress Constitutional Narrative: Oriented HEENT head/scalp atraumatic Eyes Eyes Narrative: EOM grossly intact, anicteric Neck supple Resp normal respiratory effort Resp Narrative: Crackles at the bases bilaterally Cardio regular rate and regular rhythm GI soft to palpation and non-distended GI Narrative: Does have pain on palpation under right rib cage Extremity Extremity Narrative: No edema appreciated Neuro moves all extremities Neuro Narrative: No overt focal deficits appreciated Psych Psych Narrative: Appears anxious at times, cooperative Medical Records Data Attestation: I reviewed the patient's medical records Lab / Micro Data Attestation: I reviewed the patient's lab results. Lab results narrative: CT CHEST FINDINGS: LUNGS AND PLEURAL SPACES:? Small right pleural effusion.? Large area of consolidation involving the right lower lobe posteriorly with 4.9 thick-walled cavitary lesion within the area of consolidation. Subsegmental atelectasis at the posterior aspect of the left lower lobe. No pneumothorax or significant pleural effusion on the left. HEART:? Unremarkable.? Heart size is normal.? No pericardial effusion.? No significant coronary artery calcifications. MEDIASTINUM: Reactive mediastinal and hilar adenopathy.? No hiatal hernia. THYROID:? Unremarkable.? No thyroid lesions. BONES/JOINTS:? Unremarkable.? No suspicious lytic or blastic abnormality. VASCULATURE:? Unremarkable.? Thoracic aorta is non-dilated. OTHER FINDINGS:? for findings below the diaphragm, please refer to same-day CT abdomen and pelvis. Result Diagrams: 06/17/22 02:45 06/17/22 02:45 Labs: Laboratory Results - last 24 hr 06/17/22 02:45: WBC 12.6 H, RBC 3.83 L, Hgb 11.7 L, Hct 35.2 L, MCV 91.9, MCH 30.5, MCHC 33.2, RDW Std Deviation 46.3 H, RDW Coeff of Bishop 13.6, Plt Count 244, MPV 10.8, Immature Gran % (Auto) 0.600, Neut % (Auto) 81.1 H, Lymph % (Auto) 9.1 L, [place] % (Auto) 8.8, Eos % (Auto) 0.1, Baso % (Auto) 0.3, Absolute Neuts (auto) 10.2 H, Absolute Lymphs (auto) 1.14, Nucleated RBC % 0 06/17/22 02:45: Sodium 137, Potassium 3.5, Chloride 104, Carbon Dioxide 29.0, Anion Gap 4 L, BUN 17, Creatinine 0.79, Estim Creat Clear Calc 39.39, Est GFR (MDRD) Af Amer 90, Est GFR (MDRD) Non-Af 74, BUN/Creatinine Ratio 21.5 H, Glucose 148 H, Calcium 9.0, Total Bilirubin 0.70, AST 12 L, ALT 22, Alkaline Phosphatase 81, Total Protein 7.6, Albumin 3.1 L, Globulin 4.5 H, Albumin/Globulin Ratio 0.7 L 06/17/22 02:45: Urine Color Yellow, Urine Clarity Sl. Cloudy, Urine pH 6.0, Ur Specific [place] 1.020, Urine Protein 100 H, Urine Glucose (UA) Normal, Urine Ketones 50 H, Urine Occult Blood 150 H, Urine Nitrite Positive H, Urine Bilirubin Negative, Urine Urobilinogen Normal, Ur Leukocyte Esterase 500 H, Urine RBC 0-5 SEEN, Urine WBC 10-25 SEEN, Ur Squamous Epith Cells 0-5 SEEN, Urine Bacteria 3+, Urine Mucus 1+ 06/17/22 02:45: Lipase 40 L 06/17/22 02:45: ESR 74 H Micro: Microbiology 06/17/22 09:35 Nasal Secretion SARS-CoV-2 & FLU Antigen (Rapid) - Final Radiology Impression Abdomen/Pelvis CT 06/17/22 03:47 IMPRESSION: 1. Large right inguinal region hernia containing several loops of nondilated small bowel; these appear to be potentially incarcerated. No evidence for strangulation. 2. Consolidation involving the right lower lobe with large cavitary component measuring up to 4.4 cm; this is concerning for an infectious process at this time; follow-up to resolution. Electronically Signed: Danny Castillo MD at 4:34 EST , Chest CT 06/17/22 04:07 IMPRESSION: Large area of consolidation involving the right lower lobe posteriorly with 4.9 thick-walled cavitary lesion within the area of consolidation. Electronically Signed: Danny Castillo MD at 4:38 EST , Charges/Coding Visit Charges Office Visits / Consults: 21227 OV L4 New
--- NOTE | 2022-06-17 15:44 | PN.HOSP_ITS ---
Subjective Subjective Patient seen and examined. She was admitted in the early hours of this morning with a complaint of right sided chest pain. She was found to have right sided cavitary pneumonia, per imaging done. She was started on IV zosyn and zyvox. Patient seen and examined. Daughter was by her bedside. She was hard of hearing. She still complained of right sided chest pain. She had no other complaints. She is on 3L of oxygen Objective Data Objective Data Vital Signs: Vital Signs Temp Pulse Resp BP Pulse Ox O2 Del Method O2 Flow Rate 98.5 F 77 18 134/65 H 94 Nasal Cannula 3 06/17/22 09:21 06/17/22 09:41 06/17/22 09:21 06/17/22 09:21 06/17/22 10:34 06/17/22 10:34 06/17/22 10:34 Oxygen Flow Rate (L/min) 3 Oxygen Delivery Method Nasal Cannula Weight: 194 lb 3.636 oz Body Mass Index (BMI) 33.3 Intake & Output: Intake and Output for Last 24 Hours 06/15/22 06/16/22 06/17/22 23:59 23:59 23:59 Intake Total 640 / 640 Balance 640 / 640 Lab / Micro Data Result Diagrams: 06/17/22 02:45 06/17/22 02:45 Labs: Laboratory Results - last 24 hr 06/17/22 02:45: WBC 12.6 H, RBC 3.83 L, Hgb 11.7 L, Hct 35.2 L, MCV 91.9, MCH 30.5, MCHC 33.2, RDW Std Deviation 46.3 H, RDW Coeff of Bishop 13.6, Plt Count 244, MPV 10.8, Immature Gran % (Auto) 0.600, Neut % (Auto) 81.1 H, Lymph % (Auto) 9.1 L, [place] % (Auto) 8.8, Eos % (Auto) 0.1, Baso % (Auto) 0.3, Absolute Neuts (auto) 10.2 H, Absolute Lymphs (auto) 1.14, Nucleated RBC % 0 06/17/22 02:45: Sodium 137, Potassium 3.5, Chloride 104, Carbon Dioxide 29.0, Anion Gap 4 L, BUN 17, Creatinine 0.79, Estim Creat Clear Calc 39.39, Est GFR (MDRD) Af Amer 90, Est GFR (MDRD) Non-Af 74, BUN/Creatinine Ratio 21.5 H, Glucose 148 H, Calcium 9.0, Total Bilirubin 0.70, AST 12 L, ALT 22, Alkaline Phosphatase 81, Total Protein 7.6, Albumin 3.1 L, Globulin 4.5 H, Albumin/Globulin Ratio 0.7 L 06/17/22 02:45: Urine Color Yellow, Urine Clarity Sl. Cloudy, Urine pH 6.0, Ur Specific [place] 1.020, Urine Protein 100 H, Urine Glucose (UA) Normal, Urine Ketones 50 H, Urine Occult Blood 150 H, Urine Nitrite Positive H, Urine Bilirubin Negative, Urine Urobilinogen Normal, Ur Leukocyte Esterase 500 H, Urine RBC 0-5 SEEN, Urine WBC 10-25 SEEN, Ur Squamous Epith Cells 0-5 SEEN, Urine Bacteria 3+, Urine Mucus 1+ 06/17/22 02:45: Lipase 40 L 06/17/22 02:45: ESR 74 H Micro: Microbiology 06/17/22 09:35 Nasal Secretion SARS-CoV-2 & FLU Antigen (Rapid) - Final Radiography Diagnostic Testing: Radiology Impression Abdomen/Pelvis CT 06/17/22 03:47 IMPRESSION: 1. Large right inguinal region hernia containing several loops of nondilated small bowel; these appear to be potentially incarcerated. No evidence for strangulation. 2. Consolidation involving the right lower lobe with large cavitary component measuring up to 4.4 cm; this is concerning for an infectious process at this time; follow-up to resolution. Electronically Signed: Danny Castillo MD at 4:34 EST Reading Location ID and State: [employer] / [place] Tel , Service support , Chest CT 06/17/22 04:07 IMPRESSION: Large area of consolidation involving the right lower lobe posteriorly with 4.9 thick-walled cavitary lesion within the area of consolidation. Electronically Signed: Danny Castillo MD at 4:38 EST , Physical Exam Const alert, oriented x3 and no apparent distress HEENT head/scalp atraumatic, moist oral mucous membranes and oropharynx normal Head and Scalp: normocephalic Mouth: oral and palatal mucosa normal Eyes PERRL, EOMs intact bilaterally and conjunctivae normal Neck no lymphadenopathy and supple Resp Resp Narrative: diminished breath sounds in right mid and lower lung harris, no crackles. On 3L of oxygen Cardio regular rate, regular rhythm, S1 normal heart sound, S2 normal heart sound and no murmurs GI normal to inspection, nondistended, normoactive bowel sounds, soft to palpation, non-tender and non-distended Extremity normal to inspection, full ROM and no clubbing, cyanosis or edema Neuro oriented x3, CN's II-XII intact bilaterally, moves all extremities and no focal motor deficits Sensorium / Orientation: awake and alert Motor Exam: strength 5/5 throughout Psych affect normal Assessment & Plan Assessment/Plan (1) Cavitary lesion of lung: (2) Cavitary pneumonia: PLAN: Plan #Right cavitary pneumonia * Chest CT showed large area of consolidation involving the right lower lobe posteriorly with 4.9cm thick walled cavitary lesion within the area of consolidation. * on IV zosyn and linezolid; will switch to IV vancomycin and zosyn * pulmonology consulted; per pulmo, consistent with lung abscess. There is suspicion for chronic aspiration * continue broad spectrum antibiotics, follow blood cultures. Low risk for TB as she has never been exposed to anyone with TB, has never been out of the [place], and never lived outside of [facility]; she has never been in detention. * aspiration precautions * #Hypoxia due to right cavitary pneumonia * on 3L of oxygen * titrate oxygen to maintain sats .90% * management as per above * #Hypothyroidism:on synthroid. #Hypertension: on lisinopril DVT prophylaxis; lovenox Charges/Coding Visit Charges Inpatient E&M: 33153 Subs Hosp L2
[2022-06-17] MEDS: Acetaminophen 325 MG Tablet 650 MG PO (16:51)
[2022-06-18] VITALS (9 sets, daily range): BP systolic 139–148; BP diastolic 65–71; PULSE 63–82; RESP 16–18; TEMP 36.3–36.7; O2SAT 92–96
[2022-06-18] MEDS: Acetaminophen 325 MG Tablet 650 MG PO ×2 (00:09→09:43)
[2022-06-18] MEDS: 0.9% Saline Lock 10 ML Syringe IV ×3 (00:27→21:01)
[2022-06-18] MEDS: Vancomycin IV 1,000 MG/200 ML BAG 200 MG IV ×2 (00:27→12:46)
[2022-06-18] MEDS: Levothyroxine 125 MCG Tablet PO (05:55)
[2022-06-18 06:15] LABS: Absolute Neutrophil Count 5.1 X10^3/uL (2.0-7.7); Basophil# 0.04 X10^3/uL; Basophil% 0.6 % (0-1); Eosinophil# 0.22 X10^3/uL; Eosinophils% 3.1 % (0-5); Hematocrit 33.2 % (37-47); Hemoglobin 10.9 g/dL (12.0-15.0); Mean Corp Hgb Conc 32.8 g/dL (32-36); Mean Corpuscular Hgb 30.5 pg (27.0-32.0); Mean Platelet Vol. 10.4 fl (6.2-12.0); Monocyte# 0.71 X10^3/uL; NRBC Flagged by Analyzer 0 % (0-5); Neutrophil # 5.11 X10^3/uL (2.7-7.7); Neutrophil % 71.7 % (47-70); Platelet Count 242 K/mm3 (150-450); RBC Distribution Width CV 13.7 % (11.6-14.6); RBC Distribution Width SD 46.4 fl (35.1-43.9); Red Blood Count 3.57 M/mm3 (4.2-5.4); White Blood Count 7.1 K/mm3 (4.4-11.0)
[2022-06-18 07:04] LABS: ALB/GLOB Ratio 0.6 RATIO (0.9-2.4); AST(SGOT) 14 U/L (15-37); Alanine Aminotransfer ALT/SGPT 20 U/L (13-56); Albumin, Serum 2.5 g/dL (3.2-5.0); Alkaline Phosphatase 70 U/L (45-117); Anion Gap 7 (5-15); BUN 11 mg/dL (7-18); BUN/Creat Ratio 15.7 RATIO (10-20); Calcium,Total 8.6 mg/dL (8.5-10.1); Chloride 108 mmol/L (98-107); EST Glomerular Filtration Rate 86 mL/min (>60); Est Glom Filt Rate - Afr Amer 104 mL/min (>60); Estimated Creatinine Clearance 39.39 ml/min; Globulin 4.4 g/dL (2.2-4.2); Glucose 113 mg/dL (74-106); Potassium 3.4 mmol/L (3.5-5.1); Protein, Total 6.9 g/dL (6.4-8.2); Sodium Level 141 mmol/L (136-145); Thyroid Stim Hormone (TSH) 1.06 uIU/mL (0.358-3.74)
[2022-06-18] MEDS: Lisinopril 5 MG Tablet PO (09:43)
[2022-06-18] MEDS: Potassium Chloride Oral Tablet 20 MEQ 40 MEQ PO (09:43)
[2022-06-18] MEDS: Enoxaparin 40 MG/0.4 ML Syringe SC (09:43)
--- NOTE | 2022-06-18 13:25 | PN.CC_ITS ---
Assessment & Plan Assessment/Plan (1) Cavitary lesion of lung: PLAN: Appearance consistent with a lung abscess On further questioning she states that food sometimes gets stuck in her throat when eating - mostly pretzels This would be a good location for chronic aspiration Other differential would be a lingering bacterial process Continue broad antibiotics for now Follow blood cultures and quantiferon but doubt Tb If symptoms / clinical condition declines, may need bronchoscopy for BAL but so far no need for this She will need 4 weeks of antibiotics followed by a CT Chest WO contrast to document resolution Recommend ID consult Subjective Subjective Patient is a 81-year-old female with a history of hypothyroidism, recurrent UTIs on [employer], and hypertension who presented to [facility] 06/17/2022 with right upper quadrant pain this evening below her ribs. CT abdomen performed in ED which showed something above the diaphragm on the right side.? CT chest was then obtained and it showed a large area of consolidation involving the right lower lobe posteriorly with a 4.9mm thick walled cavitary lesion within the area of consolidation.? ED physician contacted pulmonology who recommended admission, cultures, antibiotics and further work-up.? Hospitalist consulted for admission.? Patient evaluated with daughter at bedside.? She r eports that she has had a cough for several days with significant mucus production, on had drenching night sweats and has had poor p.o. intake over the past few days and estimates she lost 5 pounds.? Not significantly short of breath.? Her main complaint was the right flank/upper abdominal pain that has been present for last several days but at 12:30 AM became significant and that is when she presented here.? When she lays still it is manageable when she moves around is when the pain flares.? Denies fever, no chest pain, no swelling in her extremities, no smoking, no recent travel.? No other complaints today aside from psychosocial stressors. Objective Data Objective Data Vital Signs: Vital Signs Temp Pulse Resp BP Pulse Ox O2 Del Method O2 Flow Rate 36.7 C 79 18 142/65 H 95 Nasal Cannula 3 06/18/22 08:32 06/18/22 08:32 06/18/22 08:32 06/18/22 08:32 06/18/22 08:32 06/18/22 09:50 06/18/22 09:50 Oxygen Flow Rate (L/min) 3 Oxygen Delivery Method Nasal Cannula Weight: 88.5 kg Body Mass Index (BMI) 33.3 Intake & Output: Intake and Output for Last 24 Hours 06/16/22 06/17/22 06/18/22 23:59 23:59 23:59 Intake Total 1330 / 1570 840 / 840 Balance 1330 / 1570 840 / 840 Lab / Micro Data Result Diagrams: 06/18/22 05:55 06/18/22 05:55 Labs: Laboratory Results - last 24 hr 06/18/22 05:55: WBC 7.1, RBC 3.57 L, Hgb 10.9 L, Hct 33.2 L, MCV 93.0, MCH 30.5, MCHC 32.8, RDW Std Deviation 46.4 H, RDW Coeff of Bishop 13.7, Plt Count 242, MPV 10.4, Immature Gran % (Auto) 0.600, Neut % (Auto) 71.7 H, Lymph % (Auto) 14.0 L, [place] % (Auto) 10.0, Eos % (Auto) 3.1, Baso % (Auto) 0.6, Absolute Neuts (auto) 5.1, Absolute Lymphs (auto) 1.00, Nucleated RBC % 0 06/18/22 05:55: Sodium 141, Potassium 3.4 L, Chloride 108 H, Carbon Dioxide 26.0, Anion Gap 7, BUN 11, Creatinine 0.70, Estim Creat Clear Calc 39.39, Est GFR (MDRD) Af Amer 104, Est GFR (MDRD) Non-Af 86, BUN/Creatinine Ratio 15.7, Glucose 113 H, Calcium 8.6, Total Bilirubin 0.50, AST 14 L, ALT 20, Alkaline Phosphatase 70, Total Protein 6.9, Albumin 2.5 L, Globulin 4.4 H, Albumin/Globulin Ratio 0.6 L, TSH 1.06 Micro: Microbiology 06/17/22 06:12 Blood Culture (Wb) - Arm Left Bacteria Detection (PCR) - Final Staphylococcus lugdunensis 06/17/22 06:12 Blood Culture (Wb) - Arm Left Blood Culture - Preliminary 06/17/22 09:14 Mucosa - Nasopharyngeal Respiratory Panel (PCR) - Final 06/17/22 09:35 Nasal Secretion SARS-CoV-2 & FLU Antigen (Rapid) - Final Physical Exam Narrative Const alert and no apparent distress Constitutional Narrative: Oriented HEENT head/scalp atraumatic Eyes Eyes Narrative: EOM grossly intact, anicteric Neck supple Resp normal respiratory effort Resp Narrative: Crackles at the bases bilaterally Cardio regular rate and regular rhythm GI soft to palpation and non-distended GI Narrative: Does have pain on palpation under right rib cage Extremity Extremity Narrative: No edema appreciated Neuro moves all extremities Neuro Narrative: No overt focal deficits appreciated Psych Psych Narrative: Appears anxious at times, cooperative Charges/Coding Visit Charges Inpatient E&M: 40535 Subs Hosp L3
--- NOTE | 2022-06-18 13:29 | PN.HOSP_ITS ---
Subjective Subjective Patient seen and examined. SHe had no complaints this morning. She denied any cough. SHe denied any fever or chills, review of systems was otherwise negative. She says she sometimes chokes with swallowing, especially when she's eating pretzels. Objective Data Objective Data Vital Signs: Vital Signs Temp Pulse Resp BP Pulse Ox O2 Del Method O2 Flow Rate 98.1 F 79 18 142/65 H 95 Nasal Cannula 3 06/18/22 08:32 06/18/22 08:32 06/18/22 08:32 06/18/22 08:32 06/18/22 08:32 06/18/22 09:50 06/18/22 09:50 Oxygen Flow Rate (L/min) 3 Oxygen Delivery Method Nasal Cannula Weight: 195 lb 1.745 oz Body Mass Index (BMI) 33.3 Intake & Output: Intake and Output for Last 24 Hours 06/16/22 06/17/22 06/18/22 23:59 23:59 23:59 Intake Total 1330 / 1570 840 / 840 Balance 1330 / 1570 840 / 840 Lab / Micro Data Result Diagrams: 06/18/22 05:55 06/18/22 05:55 Labs: Laboratory Results - last 24 hr 06/18/22 05:55: WBC 7.1, RBC 3.57 L, Hgb 10.9 L, Hct 33.2 L, MCV 93.0, MCH 30.5, MCHC 32.8, RDW Std Deviation 46.4 H, RDW Coeff of Bishop 13.7, Plt Count 242, MPV 10.4, Immature Gran % (Auto) 0.600, Neut % (Auto) 71.7 H, Lymph % (Auto) 14.0 L, [place] % (Auto) 10.0, Eos % (Auto) 3.1, Baso % (Auto) 0.6, Absolute Neuts (auto) 5.1, Absolute Lymphs (auto) 1.00, Nucleated RBC % 0 06/18/22 05:55: Sodium 141, Potassium 3.4 L, Chloride 108 H, Carbon Dioxide 26.0, Anion Gap 7, BUN 11, Creatinine 0.70, Estim Creat Clear Calc 39.39, Est GFR (MDRD) Af Amer 104, Est GFR (MDRD) Non-Af 86, BUN/Creatinine Ratio 15.7, Glucose 113 H, Calcium 8.6, Total Bilirubin 0.50, AST 14 L, ALT 20, Alkaline Phosphatase 70, Total Protein 6.9, Albumin 2.5 L, Globulin 4.4 H, Albumin/Globulin Ratio 0.6 L, TSH 1.06 Micro: Microbiology 06/17/22 06:12 Blood Culture (Wb) - Arm Left Bacteria Detection (PCR) - Final Staphylococcus lugdunensis 06/17/22 06:12 Blood Culture (Wb) - Arm Left Blood Culture - Preliminary 06/17/22 09:14 Mucosa - Nasopharyngeal Respiratory Panel (PCR) - Final 06/17/22 09:35 Nasal Secretion SARS-CoV-2 & FLU Antigen (Rapid) - Final Physical Exam Const alert, oriented x3 and no apparent distress HEENT head/scalp atraumatic, moist oral mucous membranes and oropharynx normal Head and Scalp: normocephalic Mouth: oral and palatal mucosa normal Eyes PERRL, EOMs intact bilaterally and conjunctivae normal Neck no lymphadenopathy and supple Resp Resp Narrative: diminished breath sounds in right mid and lower lung harris, no crackles. On 3L of oxygen Cardio regular rate, regular rhythm, S1 normal heart sound, S2 normal heart sound and no murmurs GI normal to inspection, nondistended, normoactive bowel sounds, soft to palpation, non-tender and non-distended Extremity normal to inspection, full ROM and no clubbing, cyanosis or edema Neuro oriented x3, CN's II-XII intact bilaterally, moves all extremities and no focal motor deficits Sensorium / Orientation: awake and alert Motor Exam: strength 5/5 throughout Psych affect normal Assessment & Plan Assessment/Plan (1) Cavitary lesion of lung: (2) Cavitary pneumonia: PLAN: Plan #Right cavitary pneumonia * Chest CT showed large area of consolidation involving the right lower lobe posteriorly with 4.9cm thick walled cavitary lesion within the area of consolidation. * on IV zosyn and linezolid; will switch to IV vancomycin and zosyn * pulmonology on board; per pulmo, consistent with lung abscess. There is suspicion for chronic aspiration * continue broad spectrum antibiotics, follow blood cultures. Low risk for TB as she has never been exposed to anyone with TB, has never been out of the [place], and never lived outside of [facility]; she has never been in intermediate. * aspiration precautions * consult speech therapy as she now says she chokes with eating, especially with eating pretzels * #Hypoxia due to right cavitary pneumonia * on 3L of oxygen * titrate oxygen to maintain sats .90% * management as per above * #Hypothyroidism:on synthroid. #Hypertension: on lisinopril DVT prophylaxis; lovenox Charges/Coding Visit Charges Inpatient E&M: 72751 Subs Hosp L2
[2022-06-19] VITALS (10 sets, daily range): BP systolic 152–173; BP diastolic 76–88; PULSE 68–92; RESP 16–18; TEMP 36.3–37; O2SAT 93–97
[2022-06-19 00:14] LABS: Vancomycin, Trough Level 15.6 ug/mL (5.0-15.0)
--- NOTE | 2022-06-19 00:19 | PCM.RX.CS ---
Consult Pharmacy has been consulted to manage selected antiobiotic: Vancomycin Type of Consult: Follow-up Labs: Sodium 141 mmol/L (136-145) 06/18/22 05:55 Potassium 3.4 mmol/L (3.5-5.1) L 06/18/22 05:55 Chloride 108 mmol/L (98-107) H 06/18/22 05:55 Carbon Dioxide 26.0 mmol/L (21.0-32.0) 06/18/22 05:55 Anion Gap 7 (5-15) 06/18/22 05:55 BUN 11 mg/dL (7-18) 06/18/22 05:55 Creatinine 0.70 mg/dL (0.55-1.02) 06/18/22 05:55 Est GFR (MDRD) Af Amer 104 mL/min (>60) 06/18/22 05:55 Est GFR (MDRD) Non-Af 86 mL/min (>60) 06/18/22 05:55 BUN/Creatinine Ratio 15.7 RATIO (10-20) 06/18/22 05:55 Glucose 113 mg/dL (74-106) H 06/18/22 05:55 Vancomycin Trough 15.6 ug/mL (5.0-15.0) H 06/18/22 23:26 Microbiology: Microbiology 06/17/22 06:12 Blood Culture (Wb) - Arm Left Bacteria Detection (PCR) - Final Staphylococcus lugdunensis 06/17/22 06:12 Blood Culture (Wb) - Arm Left Blood Culture - Preliminary 06/17/22 09:14 Mucosa - Nasopharyngeal Respiratory Panel (PCR) - Final 06/17/22 09:35 Nasal Secretion SARS-CoV-2 & FLU Antigen (Rapid) - Final Goal Trough: 15-20 mcg/mL Pharmacy Plan for Drug Dosing: Pharmacy Service will continue to monitor and adjust dosing as required. TROUGH 15.6 @ 11.5 HRS. NO CHANGES, FOLLOW UP TROUGH IN 2 DAYS Follow-Up Labs: Trough Vancomycin Labs to be done on [date and time ordered]: 06/20 @ 6908
[2022-06-19] MEDS: Vancomycin IV 1,000 MG/200 ML BAG 200 MG IV ×2 (00:45→11:58)
[2022-06-19] MEDS: Acetaminophen 325 MG Tablet 650 MG PO (02:08)
[2022-06-19] MEDS: Levothyroxine 137 MCG Tablet PO (06:27)
[2022-06-19 07:04] LABS: Absolute Lymphocyte Count 1.16 X10^3/uL (0.83-4.51); Absolute Neutrophil Count 5.7 X10^3/uL (2.0-7.7); Basophil# 0.05 X10^3/uL; Basophil% 0.6 % (0-1); Eosinophil# 0.31 X10^3/uL; Eosinophils% 3.9 % (0-5); Hematocrit 35.5 % (37-47); Hemoglobin 11.1 g/dL (12.0-15.0); Lymphocyte # 1.16 X10^3/ul (0.83-4.51); Lymphocyte % 14.5 % (19-41); Mean Corp Hgb Conc 31.3 g/dL (32-36); Mean Corpuscular Hgb 29.4 pg (27.0-32.0); Mean Corpuscular Volume 94.2 fL (81-99); Mean Platelet Vol. 10.1 fl (6.2-12.0); Monocyte# 0.68 X10^3/uL; Monocyte% 8.5 % (0-10); NRBC Flagged by Analyzer 0 % (0-5); Neutrophil # 5.73 X10^3/uL (2.7-7.7); Neutrophil % 71.6 % (47-70); Platelet Count 295 K/mm3 (150-450); RBC Distribution Width CV 13.8 % (11.6-14.6); RBC Distribution Width SD 47.3 fl (35.1-43.9); Red Blood Count 3.77 M/mm3 (4.2-5.4)
[2022-06-19 07:25] LABS: Anion Gap 4 (5-15); BUN 11 mg/dL (7-18); BUN/Creat Ratio 14.3 RATIO (10-20); Calcium,Total 8.9 mg/dL (8.5-10.1); Chloride 110 mmol/L (98-107); Creatinine, Serum 0.77 mg/dL (0.55-1.02); EST Glomerular Filtration Rate 77 mL/min (>60); Est Glom Filt Rate - Afr Amer 93 mL/min (>60); Estimated Creatinine Clearance 39.39 ml/min; Glucose 107 mg/dL (74-106); Potassium 3.8 mmol/L (3.5-5.1); Sodium Level 142 mmol/L (136-145)
[2022-06-19] MEDS: Lisinopril 5 MG Tablet PO (09:24)
[2022-06-19] MEDS: Enoxaparin 40 MG/0.4 ML Syringe SC (09:24)
--- NOTE | 2022-06-19 14:29 | CON.PCM.ID_ITS ---
Assessment & Plan Assessment/Plan (1) Cavitary pneumonia: PLAN: Will check sputum cx, sputum AFB x3. One bcx so far with najma bosch is. Cont vanc/zosyn. Overall low suspicion for TB. Will follow, thank you HPI Consult Data Date of Consult: 06/19/22 HPI Narrative Reason for Consultation: lung abscess HPI Narrative: FRED ALVAREZ, is a 81 F with h/o recurrent uti, htn, presented 06/17 with new R sided chest pain, dyspnea, cough with purulent sputum, new drenching night sweats. No hemoptysis. No known TB exposures, no h/o foreign travel. Admitted on vanc/zosyn, feeling a little better. Full ROS performed and neg except as noted above. [facility] Medical History Hearing loss, left Hearing loss, right Hernia Hypertension Hypothyroidism Osteoporosis Wears hearing aid in both ears Home Medications levothyroxine 125 mcg tablet 137 mcg PO DAILY hypothyroid 04/08/17 [History Last Taken 11/25/19 07:30 125 MCG] lisinopril 5 mg tablet 5 mg PO DAILY 04/08/17 [History Last Taken 11/25/19 07:30 5 MG] calcium carbonate 500 mg calcium (1,250 mg) tablet 500 mg PO BID 11/20/19 [History Last Taken Unknown] cephalexin 250 mg capsule 250 mg PO QMWF 11/20/19 [History Last Taken Unknown] cbonqhtfons-nntzuqgdx-ein C-Mn 500 mg-400 mg capsule 1 ea PO BID 11/20/19 [History Last Taken Unknown] multivit with anwiigey-ebwx-MP-lutein 8 mg iron-400 mcg-300 mcg tablet 1 ea PO DAILY 11/20/19 [History Last Taken Unknown] Allergy/AdvReac Type Severity Reaction Status Date / Time sulfamethoxazole Allergy Hives Verified 06/17/22 02:15 [From Bactrim] trimethoprim [From Bactrim] Allergy Hives Verified 06/17/22 02:15 Surgical History History of cholecystectomy History of left knee replacement History of total right knee replacement Social History Smoking Status: Never smoker Physical Exam Const alert, oriented x3 and no apparent distress General Appearance: cooperative HEENT normocephalic and head/scalp atraumatic Eyes PERRL and EOMs intact bilaterally Neck supple and No nodes Resp Auscultation: rhonchi and wheezes Cardio regular rate and regular rhythm GI soft to palpation, non-tender and non-distended Extremity General Extremity: Negative for edema Skin no rashes or lesions noted Neuro CN's II-XII intact bilaterally Lab / Micro Data Attestation: I reviewed the patient's lab results. Result Diagrams: 06/19/22 06:45 06/19/22 06:45 Labs: Laboratory Results - last 24 hr 06/18/22 23:26: Vancomycin Trough 15.6 H 06/19/22 06:45: WBC 8.0, RBC 3.77 L, Hgb 11.1 L, Hct 35.5 L, MCV 94.2, MCH 29.4, MCHC 31.3 L, RDW Std Deviation 47.3 H, RDW Coeff of Bishop 13.8, Plt Count 295, MPV 10.1, Immature Gran % (Auto) 0.900, Neut % (Auto) 71.6 H, Lymph % (Auto) 14.5 L, [place] % (Auto) 8.5, Eos % (Auto) 3.9, Baso % (Auto) 0.6, Absolute Neuts (auto) 5.7, Absolute Lymphs (auto) 1.16, Nucleated RBC % 0 06/19/22 06:45: Sodium 142, Potassium 3.8, Chloride 110 H, Carbon Dioxide 28.0, Anion Gap 4 L, BUN 11, Creatinine 0.77, Estim Creat Clear Calc 39.39, Est GFR (MDRD) Af Amer 93, Est GFR (MDRD) Non-Af 77, BUN/Creatinine Ratio 14.3, Glucose 107 H, Calcium 8.9 Micro: Microbiology 06/17/22 06:12 Blood Culture (Wb) - Arm Left Bacteria Detection (PCR) - Final Staphylococcus lugdunensis 06/17/22 06:12 Blood Culture (Wb) - Arm Left Blood Culture - Preliminary Staphylococcus lugdunensis
--- NOTE | 2022-06-19 14:34 | CASEMGMT ---
TC to pt's room in an attempt to complete assessment. Pt did not answer the call. Assessment deferred at this time. RN CM will attempt at a later time.
--- NOTE | 2022-06-19 15:11 | CASEMGMT ---
IAIN RICH Assessment: Face to Face with pt for initial transition planning/care coordination assessment. IAIN RICH introduced self and role at [facility], pt voices understanding and consents to assessment. Assessment completed via phone ext [phone]. Pt is A/O x4 and answers all questions appropriately at this time. Care providers, pharmacy, and demographics verified/updated. Admitting Dx: RLL Cavitary Lesion. PCP: Nikolay Ascencio. Specialists: Gangel, Urology, Carrillo, ENT. Pt also sees and catalogue illustrator but can't remember the doctor's name. Preferred Pharmacy: Pt gets prescriptions mailed thru [employer] but also uses [facility] in [place]. Insurance: [employer] Medicare PPO. Prescription Benefit: Yes. LW/HPOA: Pt reports having a LW/HPOA. Pt states the paperwork is in her room. Pt is aware that the paperwork can be scanned in and kept on file. LNOK: Michael Kimball- . Living Arrangements: Pt lives with her in a one story home. There are three steps to get into the home. Pt denies any issues navigating the stairs. Transportation: Pt is able to drive self. However, pt's typically drives pt. DME/HHC/SNF: Pt has the following: cane, shower chair, bedside commode, high rise toilet, and grab bars. Pt reports having PT HHC in the past but can't recall who provided the therapy. Pt denied any SNF stays. Pt is currently on Oxygen but doesn't have it at home. Pt is aware Oxygen can be set up prior to DC if needed. Pt states no concerns with going home at time of dc. Pt states her and dtr can assist. However, will be getting surgery in July. Pt states she is open to HHC if recommended. Pt states no further concerns/needs. CM to follow. Advised pt to ask CM if any further question/concerns/needs arise, voices understanding. Pt Goal: Home with no needs. However, pt is open to HHC if recommended. Plan:?TBD.
--- NOTE | 2022-06-19 16:02 | PN.CC_ITS ---
Assessment & Plan Assessment/Plan (1) Cavitary lesion of lung: (2) Cavitary pneumonia: PLAN: Plan RECOMMENDATIONS: 1. Await TB work-up 2. Antibiotics per infectious disease 3. Consider walking oximetry with possible discharge in the next 24 [address] scan in 4 to 6 weeks 5. Outpatient complete PFT and sleep work-up IMPRESSIONS: 1. Right lower lobe cavitary lesion Clinical suspicion for aspiration versus hematologic spread leading to right lower lobe pneumonia with associated abscess. Infectious diseases following. Patient does have a TB work up currently pending. Low clinical suspicion for TB clinically. Patient does have a history of bilateral knee replacements, but is not showing any signs or symptoms of septic joint at this time. Patient has been evaluated by speech therapy. Patient with minimal nasal cannula oxygen requirements. Could consider a walking oximetry with possible d ischarge and outpatient follow-up once antibiotic plan is completed. 2. Hearing loss/hypertension/hypothyroidism/osteoporosis/advanced age Complicates care, management, recovery and prognosis. Blood pressure is up slightly today. Could consider titration of antihypertensives if this persists. Patient is not showing any endorgan damage to signify sepsis. Patient does have significant kyphosis, but it is unclear if this is correlated with significant lung restriction as there is no atelectasis suggested by CT. Subjective Subjective Patient feels subjectively much improved compared to previous. Patient is requiring minimal nasal cannula oxygen to maintain saturations. Patient feels strong enough to go home if you let me. Patient does not report a history of a need for supplemental oxygen. Objective Data Objective Data Vital Signs: Vital Signs Temp Pulse Resp BP Pulse Ox O2 Del Method O2 Flow Rate 36.9 C 92 16 173/88 H 94 Nasal Cannula 2 06/19/22 14:40 06/19/22 14:40 06/19/22 14:40 06/19/22 14:40 06/19/22 14:40 06/19/22 14:40 06/19/22 14:40 Oxygen Flow Rate (L/min) 2 Oxygen Delivery Method Nasal Cannula Weight: 89.2 kg Body Mass Index (BMI) 33.3 Intake & Output: Intake and Output for Last 24 Hours 06/17/22 06/18/22 06/19/22 23:59 23:59 23:59 Intake Total 1330 / 1570 1090 / 1490 1000 / 1000 Balance 1330 / 1570 1090 / 1490 1000 / 1000 Lab / Micro Data Attestation: I reviewed the patient's lab results. Result Diagrams: 06/19/22 06:45 06/19/22 06:45 Labs: Laboratory Results - last 24 hr 06/18/22 23:26: Vancomycin Trough 15.6 H 06/19/22 06:45: WBC 8.0, RBC 3.77 L, Hgb 11.1 L, Hct 35.5 L, MCV 94.2, MCH 29.4, MCHC 31.3 L, RDW Std Deviation 47.3 H, RDW Coeff of Bishop 13.8, Plt Count 295, MPV 10.1, Immature Gran % (Auto) 0.900, Neut % (Auto) 71.6 H, Lymph % (Auto) 14.5 L, [place] % (Auto) 8.5, Eos % (Auto) 3.9, Baso % (Auto) 0.6, Absolute Neuts (auto) 5.7, Absolute Lymphs (auto) 1.16, Nucleated RBC % 0 06/19/22 06:45: Sodium 142, Potassium 3.8, Chloride 110 H, Carbon Dioxide 28.0, Anion Gap 4 L, BUN 11, Creatinine 0.77, Estim Creat Clear Calc 39.39, Est GFR (MDRD) Af Amer 93, Est GFR (MDRD) Non-Af 77, BUN/Creatinine Ratio 14.3, Glucose 107 H, Calcium 8.9 Micro: Microbiology 06/17/22 06:12 Blood Culture (Wb) - Arm Left Bacteria Detection (PCR) - Final Staphylococcus lugdunensis 06/17/22 06:12 Blood Culture (Wb) - Arm Left Blood Culture - Preliminary Staphylococcus lugdunensis 06/17/22 09:14 Mucosa - Nasopharyngeal Respiratory Panel (PCR) - Final 06/17/22 09:35 Nasal Secretion SARS-CoV-2 & FLU Antigen (Rapid) - Final Physical Exam Const alert, oriented x3 and no apparent distress General Appearance: cooperative HEENT normocephalic and head/scalp atraumatic Mouth: oral and palatal mucosa normal Eyes PERRL and EOMs intact bilaterally Neck supple and No nodes Neck Narrative: Significant kyphosis noted. Resp Auscultation: rhonchi right lower and diminished lung sounds; Negative for rales or wheezes Cardio regular rate, regular rhythm, S1 normal heart sound, S2 normal heart sound, no murmurs, no rub and no gallops GI soft to palpation, non-tender and non-distended Extremity General Extremity: Negative for edema Skin no rashes or lesions noted Neuro CN's II-XII intact bilaterally and moves all extremities Psych cooperative and affect normal Charges/Coding Visit Charges Inpatient E&M: 86620 Subs Hosp L2
--- NOTE | 2022-06-19 17:45 | PN.HOSP_ITS ---
Subjective Subjective Follow-up on acute right cavitary pneumonia: Patient was seen and examined. Denied any fever or chills. She is eager to be discharged. Denied any nausea vomiting or diarrhea Objective Data Objective Data Vital Signs: Vital Signs Temp Pulse Resp BP Pulse Ox O2 Del Method O2 Flow Rate 98.5 F 92 16 173/88 H 94 Nasal Cannula 2 06/19/22 14:40 06/19/22 14:40 06/19/22 14:40 06/19/22 14:40 06/19/22 14:40 06/19/22 14:40 06/19/22 14:40 Oxygen Flow Rate (L/min) 2 Oxygen Delivery Method Nasal Cannula Weight: 89.2 kg Body Mass Index (BMI) 33.3 Intake & Output: Intake and Output for Last 24 Hours 06/17/22 06/18/22 06/19/22 23:59 23:59 23:59 Intake Total 1330 / 1570 1090 / 1490 1200 / 1200 Balance 1330 / 1570 1090 / 1490 1200 / 1200 Lab / Micro Data Result Diagrams: 06/19/22 06:45 06/19/22 06:45 Labs: Laboratory Results - last 24 hr 06/18/22 23:26: Vancomycin Trough 15.6 H 06/19/22 06:45: WBC 8.0, RBC 3.77 L, Hgb 11.1 L, Hct 35.5 L, MCV 94.2, MCH 29.4, MCHC 31.3 L, RDW Std Deviation 47.3 H, RDW Coeff of Bishop 13.8, Plt Count 295, MPV 10.1, Immature Gran % (Auto) 0.900, Neut % (Auto) 71.6 H, Lymph % (Auto) 14.5 L, [place] % (Auto) 8.5, Eos % (Auto) 3.9, Baso % (Auto) 0.6, Absolute Neuts (auto) 5.7, Absolute Lymphs (auto) 1.16, Nucleated RBC % 0 06/19/22 06:45: Sodium 142, Potassium 3.8, Chloride 110 H, Carbon Dioxide 28.0, Anion Gap 4 L, BUN 11, Creatinine 0.77, Estim Creat Clear Calc 39.39, Est GFR (M DRD) Af Amer 93, Est GFR (MDRD) Non-Af 77, BUN/Creatinine Ratio 14.3, Glucose 107 H, Calcium 8.9 Micro: Microbiology 06/17/22 06:12 Blood Culture (Wb) - Arm Left Bacteria Detection (PCR) - Final Staphylococcus lugdunensis 06/17/22 06:12 Blood Culture (Wb) - Arm Left Blood Culture - Preliminary Staphylococcus lugdunensis 06/17/22 09:14 Mucosa - Nasopharyngeal Respiratory Panel (PCR) - Final 06/17/22 09:35 Nasal Secretion SARS-CoV-2 & FLU Antigen (Rapid) - Final Physical Exam Narrative Physical exam: General: Alert, Oriented x3, Cooperative, on 2 L of oxygen HEENT: Atraumatic Oral: Moist Mucosa Neck: Supple Lungs: Diminished to auscultation Cardiovascular: HS I+II, regular, no murmurs Abdomen: Bowel Sounds Present, Soft, Non Tender Extremities: No edema Skin: No rashes, No breakdown Neurological: Grossly intact Psych/Mental Status: Appropriate Assessment & Plan Assessment/Plan (1) Cavitary lesion of lung: (2) Cavitary pneumonia: PLAN: Plan 1. Acute hypoxia secondary to acute Right cavitary pneumonia/ lung abscess Blood cultures growing staph lugdunesis Patient is on 2 L of oxygen, Pulmonology and ID following; continue with breathing treatments, encourage use of incentive spirometer. Wean off oxygen for SPO2 more than 94% Continue on vancomycin and Zosyn Continue Quantiferon assay and sputum cultures pending 2. Hypertension, controlled, continue on lisinopril 3. Hypothyroidism, continue on synthroid 4. DVT PPx-Lovenox SC Charges/Coding Visit Charges Inpatient E&M: 62287 [facility] Hosp L3
--- NOTE | 2022-06-19 19:00 | PCA ---
EMERGENCY DOCUMENTATION
--- NOTE | 2022-06-19 19:00 | NURSING ---
Emergency Documentation effective 06/19/20 @ 8124
[2022-06-19] MEDS: Sodium Chloride 3% 500 ML IV.SOLN. INHALATION (21:43)
[2022-06-20] VITALS (8 sets, daily range): BP systolic 156–167; BP diastolic 78–82; PULSE 73–87; RESP 16–20; TEMP 36.8–37.4; O2SAT 91–94
[2022-06-20] MEDS: Vancomycin IV 1,000 MG/200 ML BAG 200 MG IV ×2 (00:37→11:50)
[2022-06-20] MEDS: Levothyroxine 137 MCG Tablet PO (07:18)
[2022-06-20] MEDS: Sodium Chloride 3% 500 ML IV.SOLN. INHALATION (07:56)
--- NOTE | 2022-06-20 09:36 | ECHOD_ITS ---
Reason For Study: MURMUR Procedure This was a 2D Doppler, Color Flow transthoracic echocardiogram. Exam performed portable in patient room. Left Ventricle Normal LV size. Left ventricular systolic function is normal. The estimated ejection fraction is 65 %. No regional wall motion abnormalities noted. Right Ventricle Normal RV size. Normal systolic function. Atria The left atrium is mildly enlarged. Normal right atrium. Mitral Valve There is moderate mitral annular calcification. Mild (1+) eccentric mitral valve insufficiency. Tricuspid Valve Normal tricuspid valve. Aortic Valve Trisinus/trileaflet aortic valve. Pulmonic Valve Normal pulmonic valve. Great Vessels Normal aortic root. The pulmonary artery is normal size. Normal inferior vena cava. Pericardium/Pleural No pericardial effusion. MMode/2D Measurements & Calculations LVIDd: 4.4 cm IVSd: 0.94 cm Ao root diam: 3.3 cm LVIDs: 3.1 cm LVPWd: 1.2 cm FS: 28.3 % LAV(MOD-sp4): 90.2 ml LVAd ap4: 25.4 cm2 SV(MOD-sp4): 36.7 ml LVLd ap4: 7.7 cm EDV(MOD-sp4): 70.3 ml EDV(sp4-el): 71.4 ml LVAs ap4: 15.0 cm2 LVLs ap4: 6.1 cm ESV(MOD-sp4): 33.6 ml ESV(sp4-el): 31.4 ml EF(MOD-sp4): 52.2 % EF(sp4-el): 56.1 % SV(sp4-el): 40.1 ml LA A4 area: 26.1 cm2 LA dimension(2D): 4.9 cm RA A4 area: 9.3 cm2 Time Measurements MV dec time: 0.27 sec Doppler Measurements & Calculations MV E max dinesh: 89.8 cm/sec MV V2 max: 138.1 cm/sec MV dec slope: 343.1 cm/sec2 MV A max dinesh: 128.0 cm/sec MV max P.6 mmHg MV E/A: 0.70 MV V2 mean: 78.8 cm/sec MV mean P.8 mmHg MV V2 VTI: 33.6 cm Ao V2 max: 123.3 cm/sec LV V1 max: 103.5 cm/sec TR max dinesh: 272.8 cm/sec Ao max P.1 mmHg LV V1 max P.3 mmHg TR max P.8 mmHg ECHO/Echo Complete Interpretation Summary Normal LV size. Left ventricular systolic function is normal. The estimated ejection fraction is 65 %. The left atrium is mildly enlarged. There is moderate mitral annular calcification. Mild (1+) eccentric mitral valve insufficiency. There is no evidence of a mass or vegetation. This does not rule out endocardit is. Ordering Physician: Missael Iraheta Performed By: Virgen Talavera RCS
--- NOTE | 2022-06-20 10:57 | PCM.PN.ID ---
Physical Exam Narrative Feeling better, no fever, no cough, no dyspnea Const alert and no apparent distress Eyes PERRL and EOMs intact bilaterally Resp normal air movement and clear to auscultation bilaterally Cardio regular rate and regular rhythm GI soft to palpation, non-tender and non-distended Skin no rashes or lesions noted ID ID: Route of nutrition/ use of supplements: [] Nutritional Intake: [] IV Site: [] Flores Catheter: [] Assessment & Plan Assessment/Plan (1) Cavitary pneumonia: PLAN: So far unable to produce sputum cx, sputum AFB x3. One bcx so far with MR-najma beltre, other still pending. Cont vanc/zosyn. Overall low suspicion for TB. checking echo. If no veg seen, plan will be for at least one month course po doxy 100mg bid and augmentin 875mg bid with repeat imaging prior to stopping abx. Will follow
[2022-06-20] MEDS: Lisinopril 5 MG Tablet PO (11:55)
[2022-06-20] MEDS: Enoxaparin 40 MG/0.4 ML Syringe SC (11:55)
--- NOTE | 2022-06-20 14:36 | PCM.PN.INT ---
Assessment & Plan Assessment/Plan (1) Cavitary lesion of lung: (2) Cavitary pneumonia: PLAN: Plan RECOMMENDATIONS: 1. Await TB work-up 2. Antibiotics per infectious disease 3. We will likely obtain walking oximetry tomorrow 4. Repeat CT scan in 4 to 6 weeks 5. Outpatient complete PFT and sleep work-up IMPRESSIONS: 1. Right lower lobe cavitary lesion Clinical suspicion for aspiration versus hematologic spread leading to right lower lobe pneumonia with associated abscess. Infectious diseases following. Patient does have a TB work up currently pending. Low clinical suspicion for TB clinically. Patient does have a history of bilateral knee replacements, but is not showing any signs or symptoms of septic joint at this time. Patient has been evaluated by speech therapy. Patient with minimal nasal cannula oxygen requirements. Likely okay to discharge from pulmonary perspective. Patient will need a walking oximetry prior to discharge. Cannot exclude transient needs for supplemental oxygen 2. Hearing loss/hypertension/hypothyroidism/osteoporosis/advanced age Complicates care, management, recovery and prognosis. Blood pressure is up slightly today. Could consider titration of antihypertensives if this persists. Patient is not showing any endorgan damage to signify sepsis. Patient does have significant kyphosis, but it is unclear if this is correlated with significant lung restriction as there is no atelectasis suggested by CT. Subjective Subjective Patient did well overnight. Patient subjectively feels improved compared to yesterday. Patient states she has been able to move around the room with less difficulty. Patient is reporting improvement in coughing. Objective Data Objective Data Vital Signs: Vital Signs Temp Pulse Resp BP Pulse Ox O2 Del Method O2 Flow Rate 37.4 C H 85 20 H 167/82 H 94 Nasal Cannula 3 06/20/22 03:11 06/20/22 07:56 06/20/22 07:56 06/20/22 03:11 06/20/22 07:56 06/20/22 07:56 06/20/22 07:56 Oxygen Flow Rate (L/min) 3 Oxygen Delivery Method Nasal Cannula Weight: 88.1 kg Body Mass Index (BMI) 33.3 Intake & Output: Intake and Output for Last 24 Hours 06/18/22 06/19/22 06/20/22 23:59 23:59 23:59 Intake Total 1090 / 1490 1490 / 1490 300 / 300 Balance 1090 / 1490 1490 / 1490 300 / 300 Lab / Micro Data Attestation: I reviewed the patient's lab results. Result Diagrams: 06/19/22 06:45 06/19/22 06:45 Micro: Microbiology 06/17/22 06:12 Blood Culture (Wb) - Arm Left Bacteria Detection (PCR) - Final Staphylococcus lugdunensis 06/17/22 06:12 Blood Culture (Wb) - Arm Left Blood Culture - Final Staphylococcus lugdunensis 06/17/22 09:14 Mucosa - Nasopharyngeal Respiratory Panel (PCR) - Final 06/17/22 09:35 Nasal Secretion SARS-CoV-2 & FLU Antigen (Rapid) - Final Radiography Diagnostic Testing: Radiology Impression Echocardiogram 06/20/22 09:36 Interpretation Summary Normal LV size. Left ventricular systolic function is normal. The estimated ejection fraction is 65 %. The left atrium is mildly enlarged. There is moderate mitral annular calcification. Mild (1+) eccentric mitral valve insufficiency. There is no evidence of a mass or vegetation. This does not rule out endocarditis. Ordering Physician: Missael Iraheta Performed By: Virgen Talavera RCS Physical Exam Const alert, oriented x3 and no apparent distress Constitutional Narrative: No conversational dyspnea General Appearance: cooperative HEENT normocephalic and head/scalp atraumatic Eyes PERRL and EOMs intact bilaterally Neck supple and No nodes Neck Narrative: Significant kyphosis noted. Resp Auscultation: rhonchi right lower and diminished lung sounds; Negative for rales or wheezes Cardio regular rate, regular rhythm, S1 normal heart sound, S2 normal heart sound, no murmurs, no rub and no gallops GI soft to palpation, non-tender and non-distended Extremity General Extremity: Negative for edema Skin no rashes or lesions noted Neuro CN's II-XII intact bilaterally and moves all extremities Psych cooperative and affect normal Charges/Coding Visit Charges Inpatient E&M: 20599 Subs Hosp L2
--- NOTE | 2022-06-20 15:04 | DCINST_ITS ---
Discharge Instructions Diet Discharge Diet: No restrictions Activity Discharge Activity: Return to Normal Activity Follow Up Care Test Results: Test results from this visit will be discussed in further detail at your follow- up appointment, if applicable. Discharge Plan Admission Admit Date/Time: 06/17/22 07:24 Primary Reason for Your Visit: Cavitary pneumonia Attending Provider: Mary Benitez Primary Care Provider: Nelson Ascencio Consulting Providers: Subha Lino ; Capo Young ; Patrick Archer ; Chacho Rojas ; Gus Garza ; Letty Rodriguez NP ; Mylene Yang ; Missael Iraheta Instructions Additional Instructions / Restrictions: Take all your medications as prescribed. Follow-up with your primary care doctor within 1 week Follow-up with infectious disease in 1 month. Discharge Orders/Prescriptions Prescriptions: New amoxicillin-pot clavulanate [Augmentin] 500-125 mg tablet 1 tab PO Q12H 30 Days Qty: 60 0RF doxycycline monohydrate 100 mg capsule 100 mg PO BID 30 Days Qty: 60 0RF albuterol sulfate [Proventil HFA] 90 mcg/actuation HFA aerosol inhaler 1 inh inhalation Q6H 14 Days Qty: 8.5 0RF Continued levothyroxine 125 MCG tablet 137 mcg PO DAILY lisinopril 5 MG tablet 5 mg PO DAILY calcium carbonate 500 MG tablet 500 mg PO BID lftevddkslt-efnwfudot-dwu C-Mn 1 EACH capsule 1 ea PO BID antwgtoa-rty-ihlj-FA-lutein 1 EACH tablet 1 ea PO DAILY Discontinued cephalexin 250 MG capsule 250 mg PO QMWF Referrals / Follow Up: Nelson Ascencio MD [Primary Care Provider] - In 1 Week Missael Iraheta MD [Med Staff - Active Staff] - Within 1 Month Disposition Disposition (needs filled in before D/C Order can be placed): Home, Self Care
--- NOTE | 2022-06-20 15:12 | PCM.DC.SUM ---
Providers Date of Admission: 06/17/22 Date of Discharge: 06/20/22 Primary Care Physician: Dr. Nelson Ascencio MD Consultations 06/17/22 09:14 Consult: Medical Sales / Pulmonary Medicine Routine Consulting Provider: Pulmonary Medicine alayna Conway Reason for Consult: 4.9mm cavitary lesion in R lung EMERGENT Consult: No Notified: Yes Date Notified: 06/17/22 Time Notified: 06:22 Method of Notification: ED Physician Initiated 06/17/22 09:58 Consult: Infectious Disease Routine Consulting Provider: Missael Iraheta Reason for Consult: cavitary pneumonia EMERGENT Consult: No Notified: Yes Date Notified: 06/19/22 Time Notified: 08:13 Method of Notification: Text Reason For Visit: RLL CAVITARY LESION Diagnosis Discharge Diagnosis (1) Cavitary lesion of lung: Status: Acute Code(s): J98.4 - Other disorders of lung (2) Cavitary pneumonia: Status: Acute Code(s): J18.9 - Pneumonia, unspecified organism; J98.4 - Other disorders of lung Plan 1. Acute hypoxia secondary to acute Right cavitary pneumonia/ lung abscess 2. Hypertension 3. Hypothyroidism Medications at Discharge Home Medications levothyroxine 125 mcg tablet 137 mcg PO DAILY hypothyroid 04/08/17 lisinopril 5 mg tablet 5 mg PO DAILY 04/08/17 calcium carbonate 500 mg calcium (1,250 mg) tablet 500 mg PO BID 11/20/19 obkktoljkvk-ruukdlcst-agx C-Mn 500 mg-400 mg capsule 1 ea PO BID 11/20/19 multivit with vmlbartr-ltki-DI-lutein 8 mg iron-400 mcg-300 mcg tablet 1 ea PO DAILY 11/20/19 albuterol sulfate 90 mcg/actuation aerosol inhaler (Proventil HFA) 1 inh inhalation Q6H 14 days #8.5 grams 06/20/22 amoxicillin 500 mg-potassium clavulanate 125 mg tablet (Augmentin) 1 tab PO Q12H 30 days #60 tabs 06/20/22 doxycycline monohydrate 100 mg capsule 100 mg PO BID 30 days #60 caps 06/20/22 Hospital Course Operations None Procedures 2-D Echocardiogram Summary of Care Provided Minutes Spent on Discharge: 35 Hospital Course: 81-year-old with past medical history hypertension, hypothyroidism, recurrent UTIs on Keflex, Sunday?Sunday?Sunday who presented with right upper quadrant pain that was present below her ribs. CT of the abdomen pelvis showed large right inguinal region hernia containing several loops of nondilated small bowel, consolidation involving the right lower lobe with large cavitary component measuring up to 4.5 cm.CT of the chest showed a 4.9 mm thick walled cavitary lesion with large area of consolidation behind the right posterior lobe. Patient was admitted to the progressive care unit in airborne isolation. She was worked up for possible TB. Labs were pending at time of discharge. Infectious disease were consulted. Patient's blood cultures grew staph lugdunensis. Respiratory panel was negative. Patient continued to be stable, required 2 L of oxygen. She was discharged home on 1 month of Augmentin and doxycycline. She will follow-up with infectious disease within a month. She also follow-up with her primary care doctor within 1 week. Patient was evaluated for home oxygen and qualified for discharge with oxygen. Physical Exam Narrative Physical exam: General: Alert, Oriented x3, Cooperative, on 2 L of oxygen HEENT: Atraumatic Oral: Moist Mucosa Neck: Supple Lungs: Diminished to auscultation Cardiovascular: HS I+II, regular, no murmurs Abdomen: Bowel Sounds Present, Soft, Non Tender Extremities: No edema Skin: No rashes, No breakdown Neurological: Grossly intact Psych/Mental Status: Appropriate Weight / BMI Weight Weight: 88.1 kg Body Mass Index (BMI) 33.3 ABG / Lab / Microbiology Data Result Diagrams: 06/19/22 06:45 06/19/22 06:45 Microbiology: Microbiology 06/17/22 06:12 Blood Culture (Wb) - Arm Left Bacteria Detection (PCR) - Final Staphylococcus lugdunensis 06/17/22 06:12 Blood Culture (Wb) - Arm Left Blood Culture - Final Staphylococcus lugdunensis 06/17/22 09:14 Mucosa - Nasopharyngeal Respiratory Panel (PCR) - Final 06/17/22 09:35 Nasal Secretion SARS-CoV-2 & FLU Antigen (Rapid) - Final Radiography Diagnostic Testing: Radiology Impression Echocardiogram 06/20/22 09:36 Interpretation Summary Normal LV size. Left ventricular systolic function is normal. The estimated ejection fraction is 65 %. The left atrium is mildly enlarged. There is moderate mitral annular calcification. Mild (1+) eccentric mitral valve insufficiency. There is no evidence of a mass or vegetation. This does not rule out endocarditis. Ordering Physician: Missael Iraheta Performed By: Virgen Talavera RCS D/C Instructions Discharge Diet: No restrictions Meaningful Use Info Meaningful Use Diagnoses (Choose all that apply): None applicable Discharge Plan Admission Admit Date/Time: 06/17/22 07:24 Primary Reason for Your Visit: Cavitary pneumonia Attending Provider: Mary Benitez Primary Care Provider: Nelson Ascencio Consulting Providers: Subha Lino ; Capo Young ; Patrick Archer ; Chacho Rojas ; Gus Garza ; Letty Rodriguez NP ; Mylene Yang ; Missael Iraheta Instructions Additional Instructions / Restrictions: Take all your medications as prescribed. Follow-up with your primary care doctor within 1 week Follow-up with infectious disease in 1 month. Discharge Orders/Prescriptions Prescriptions: New amoxicillin-pot clavulanate [Augmentin] 500-125 mg tablet 1 tab PO Q12H 30 Days Qty: 60 0RF doxycycline monohydrate 100 mg capsule 100 mg PO BID 30 Days Qty: 60 0RF albuterol sulfate [Proventil HFA] 90 mcg/actuation HFA aerosol inhaler 1 inh inhalation Q6H 14 Days Qty: 8.5 0RF Continued levothyroxine 125 MCG tablet 137 mcg PO DAILY lisinopril 5 MG tablet 5 mg PO DAILY calcium carbonate 500 MG tablet 500 mg PO BID zvansyrwkfz-wiafcvwds-vlu C-Mn 1 EACH capsule 1 ea PO BID ocygmofi-ute-yhyn-FA-lutein 1 EACH tablet 1 ea PO DAILY Discontinued cephalexin 250 MG capsule 250 mg PO QMWF Referrals / Follow Up: Nelson Ascencio MD [Primary Care Provider] - In 1 Week Missael Iraheta MD [Med Staff - Active Staff] - Within 1 Month Disposition Disposition (needs filled in before D/C Order can be placed): Home, Self Care Charges/Coding Visit Charges Inpatient E&M: 81941 Disch Hosp
--- NOTE | 2022-06-20 16:12 | CASEMGMT ---
Per nurse Fragoso patient does not qualify for home oxygen. IAIN RICH called patient in room. Patient states she is doing well. Patient states she has her daughters staying with her and her at this time and they are able to help at home. Patient denied need for HHC at discharge. IAIN RICH instructed patient that should she reconsider HHC once she is home, she can follow-up with PCP for setup. Patient voiced understanding and had no further questions or concerns.
[2022-06-21 08:10] LABS: QNTFERON TB Mitogen Value > 10.00 IU/mL (.); QNTFERON TB Nil Value 0.05 IU/mL (.); QNTFERON TB1+ Ag Value 0.08 IU/mL (.); QNTFERON TB2+ Ag Value 0.04 IU/mL (.)
[2022-06-21 14:03] LABS: QNTIFERON TB Positive Criteria Negative (Negative)
== END 2022-06-20 18:53 | disposition home or self-care (01) | DRG 177 ==
LOC: ED 07:03 → PCU 07:30
PROVIDERS: Internal Medicine Critical Care Medicine; Student in an Organized Health Care Education/Training Program; Admitting Provider Internal Medicine; Emergency Provider Emergency Medicine; PCP Family Medicine; Visit Provider Internal Medicine
DX: J15.20 Pneumonia due to staphylococcus, unspecified (principal); J85.1 Abscess of lung with pneumonia; J15.6 Pneumonia due to other Gram-negative bacteria; E03.9 Hypothyroidism, unspecified; K40.90 Unilateral inguinal hernia, without obstruction or gangrene, not specified as recurrent; J98.4 Other disorders of lung; I10 Essential (primary) hypertension; M40.209 Unspecified kyphosis, site unspecified; H91.90 Unspecified hearing loss, unspecified ear; R91.8 Other nonspecific abnormal finding of lung field; R09.02 Hypoxemia; M81.0 Age-related osteoporosis without current pathological fracture
CPT/HCPCS: 36415; 71250; 74177; 80048; 80053; 80202; 81001; 83690; 84443; 85025; 85652; 86480; 87040; 87149; 87186; 87428; 87633; 92526; 92610; 93005; 93306; 94640; 97802; 99251; 99284; J7040; Q9957; A4216; G0463; J2405

== ENCOUNTER → 2022-07-19 | Outpatient (CLI) | payer MEDICARE, SELFPAY ==
--- NOTE | 2022-07-19 15:00 | RAD_ITS ---
STUDY: X-RAY CHEST REASON FOR EXAM: Female, 81 years old. LUNG ABSCESS TECHNIQUE: PA and lateral COMPARISON: None. FINDINGS: Minor interstitial thickening in the lower lobes. There is a tiny thin-walled cavitary density at the right base.. There is no demonstrated pleural abnormality. Normal size heart. Normal mediastinum and kimmy. Normal visualized pulmonary arteries. Mildly calcified aortic arch and descending thoracic aorta. Dorsal spine and shoulders demonstrate degenerative change. Normal visualized ribs, clavicle There is no demonstrated abnormality of the visualized soft tissue structures of the upper abdomen. RAD/Chest PA and Lateral IMPRESSION: Minor bibasilar interstitial thickening. Persistent thin-walled cavitary lesion at the right base consistent with resolution of prior abscess or infected emphysematous bullous cavity Electronically Signed: Ángel Peres MD at 21:34 EST ,
== END | disposition home or self-care (01) ==
LOC: RAD 14:59
PROVIDERS: PCP Family Medicine; Referring Provider Internal Medicine Infectious Disease; Visit Provider Internal Medicine Infectious Disease
DX: M19.012 Primary osteoarthritis, left shoulder (principal); I70.0 Atherosclerosis of aorta; J85.2 Abscess of lung without pneumonia; M19.011 Primary osteoarthritis, right shoulder
CPT/HCPCS: 71046

== ENCOUNTER 2022-08-04 04:53 | Inpatient (IN) | payer MEDICARE, SELFPAY ==
[2022-08-04 04:54] VITALS: BP 210/100; PULSE 68; RESP 16; TEMP 36.4; O2SAT 97; BMI 33.3
--- NOTE | 2022-08-04 05:09 | CT_ITS ---
EXAM: CT ABDOMEN AND PELVIS WITH INTRAVENOUS CONTRAST CLINICAL INDICATION: abd pain TECHNIQUE: Helically acquired images were obtained of the abdomen and pelvis with intravenous contrast. This CT exam was performed using one or more of the following dose reduction techniques: automated exposure control, adjustment of the mA and/or kV according to patient size, and/or use of iterative reconstruction technique. This report was created using [employer] report generation technology. CONTRAST: IV 100mL Isovue-370 COMPARISON: 06/17/2022 FINDINGS: LOWER THORAX: Unremarkable. Lung bases are clear. No cardiomegaly. No significant pericardial effusion. ABDOMEN: LIVER: Unremarkable. Homogeneous. No focal mass. GALLBLADDER AND BILE DUCTS: Cholecystectomy. No intra- or extrahepatic biliary ductal dilation. PANCREAS: Unremarkable. No focal cystic or solid mass. SPLEEN: Unremarkable. Normal size without focal cystic or solid mass. ADRENALS: Unremarkable. No nodules. KIDNEYS AND URETERS: Multiple peripelvic renal cysts on the left, no follow-up required. No hydronephrosis. STOMACH AND BOWEL: Large right inguinal hernia with small bowel loops within and proximal to the hernia demonstrating distention with significant adjacent mesenteric stranding/fluid. 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 PELVIS: APPENDIX: The appendix is normal. BLADDER: Unremarkable. REPRODUCTIVE: Unremarkable as visualized. No mass. ABDOMEN and PELVIS: INTRAPERITONEAL SPACE: Unremarkable. No ascites or other fluid collection. No free air. BONES/JOINTS: Degenerative changes of the spine. No suspicious lytic or blastic abnormality. SOFT TISSUES: See above. VASCULATURE: Unremarkable. Abdominal aorta is non-dilated. LYMPH NODES: Unremarkable. No enlarged lymph nodes. CT/Abdomen/Pelvis W IV Cont ONLY IMPRESSION: Large right inguinal hernia containing small bowel loops. The bowel loops within and proximal to the hernia demonstrate distention with significant adjacent mesenteric stranding/fluid. Findings are concerning for incarceration causing early evidence of obstruction. The appearance is worsened compared with the prior CT. Recommend surgical consultation. Electronically Signed: Clarence Vieira MD at 6:31 EST ,
--- NOTE | 2022-08-04 05:14 | EDS_ITS ---
HPI History of Present Illness Chief Complaint: Abd Pain Narrative Narrative: Patient is a 81-year-old female with past medical history of hypertension hypothyroidism recurrent UTIs and recent admission to the hospital in June 2022 for a cavitary lung abscess. Patient was discharged home on a month of Augmentin and doxycycline. She states she took these as directed and finished them roughly 2 weeks ago. She states that she was feeling fine last evening but then awoke this morning with generalized abdominal pain and bouts of nausea. She denies any actual vomiting or loose stool/diarrhea. She denies any recent sick contacts. She states that the pain is severe and not responding to dgso-qkn-onzxmny medications and as it came on suddenly she was unsure what the cause was or how to treat it and therefore called EMS to bring her in for evaluation [facility] Medical History Hearing loss, left Hearing loss, right Hernia Hypertension Hypothyroidism Osteoporosis Wears hearing aid in both ears Home Medications levothyroxine 125 mcg tablet 137 mcg PO DAILY hypothyroid 04/08/17 [History Last Taken 11/25/19 07:30 125 MCG] lisinopril 5 mg tablet 5 mg PO DAILY 04/08/17 [History Last Taken 11/25/19 07:30 5 MG] calcium carbonate 500 mg calcium (1,250 mg) tablet 500 mg PO BID 11/20/19 [ History Last Taken Unknown] npbssfhpyqe-goqzthaia-rhy C-Mn 500 mg-400 mg capsule 1 ea PO BID 11/20/19 [History Last Taken Unknown] multivit with jqzhasim-ahzt-WV-lutein 8 mg iron-400 mcg-300 mcg tablet 1 ea PO DAILY 11/20/19 [History Last Taken Unknown] albuterol sulfate 90 mcg/actuation aerosol inhaler (Proventil HFA) 1 inh inhalation Q6H 14 days #8.5 grams 06/20/22 [Rx Last Taken Unknown] amoxicillin 500 mg-potassium clavulanate 125 mg tablet (Augmentin) 1 tab PO Q12H 30 days #60 tabs 06/20/22 [Rx Last Taken Unknown] doxycycline monohydrate 100 mg capsule 100 mg PO BID 30 days #60 caps 06/20/22 [Rx Last Taken Unknown] Allergy/AdvReac Type Severity Reaction Status Date / Time sulfamethoxazole Allergy Hives Verified 08/04/22 04:56 [From Bactrim] trimethoprim [From Bactrim] Allergy Hives Verified 08/04/22 04:56 Surgical History History of cholecystectomy History of left knee replacement History of total right knee replacement Social History Smoking Status: Never smoker ROS ROS ED Constitutional Constitutional ED: Denies chills or fever(s) ENT ENT ED: Denies sore throat Cardiovascular Cardiovascular: Denies chest pain Respiratory/Chest Respiratory/Chest: Reports cough; Denies dyspnea Gastrointestinal Gastrointestinal: Reports abdominal pain and nausea; Denies diarrhea or vomiting Genitourinary Genitourinary ED: Denies dysuria Musculoskeletal Musculoskeletal: Denies myalgias Integumentary Denies rash Neurologic Neurologic: Denies headache(s) Hematologic/Lymphatic Hematologic/Lymphatic: Denies easy bleeding or easy bruising EXAM Physical Exam Const Vital Signs: 08/04/22 04:54 Temperature 97.5 F L Temperature Source Temporal Pulse Rate 68 Respiratory Rate 16 Blood Pressure 210/100 H Blood Pressure Mean 136 Pulse Ox 97 Positive well nourished, well developed and obese General Appearance ED: well developed Nutritional Appearance: obese HEENT Reports moist mucous membranes Eyes PERRL and EOMs intact bilaterally General Eye ED: Negative for scleral icterus Neck supple Resp normal respiratory effort and clear to auscultation bilaterally Cardio regular rate and regular rhythm Rate: other Other Details: Radial pulses are plus 2 out of 4 bilaterally are equal and symmetric Carotid pulses are equal and symmetric as well GI non-distended GI Narrative: Abdomen is obese soft and nondistended with hypoactive bowel sounds. Patient has a large lower abdominal hernia present. It does show changes concerning for incarceration. The patient has diffuse pain of her abdomen with palpation. There is no guarding or rigidity. No pulsatile mass. Auscultation: hypoactive bowel sounds Palpation: soft Extremity normal to inspection Neuro oriented x3 and CN's II-XII intact bilaterally Sensorium / Orientation: alert Psych mental status grossly normal Skin no rashes or lesions noted General Skin Exam: Negative for jaundice MDM MDM MDM Narrative Medical decision making narrative: Patient presented to the ER hypertensive but has a past medical history of this has not taken her morning hypertension meds and is in pain so this values to be expected. By exam she has a hernia that appears incarcerated in nature although her clinical presentation is atypical as she does not point to the hernia as a cause of her pain but says it is more diffuse. Secondary to this elected perform basic laboratory studies as well as CT scan. Labs revealed no clinically significant findings and CT scan did show worsening of the swelling and inflammation of the intestines throughout the hernia compared to June concerning for incarceration with early small bowel obstruction. I talked to Dr. Beal the general surgeon who performed surgery on her hernia 2 to 3 years ago but she is unavailable today as she is working at another hospital and therefore recommends I talked to the general surgeon on-call. Secondary to this Dr. Rajput was contacted and he reports he will evaluate the patient in the ER. At this time the pain patient is pain-free and her blood pressure has normalized with resolution of the pain. Disposition will be based on general surgery's recommendation. The patient will be signed out to Dr. Alan while awaiting general surgery consultation. Lab Data Attestation: I reviewed the patient's lab results. Labs: Laboratory Results - last 24 hr 08/04/22 08/04/22 08/04/22 04:18 04:18 04:18 WBC 9.2 RBC 4.08 L Hgb 12.1 Hct 37.7 MCV 92.4 MCH 29.7 MCHC 32.1 RDW Std Deviation 48.4 H RDW Coeff of Bishop 14.2 Plt Count 299 MPV 10.6 Immature Gran % (Auto) 0.300 Neut % (Auto) 66.1 Lymph % (Auto) 21.7 [place] % (Auto) 7.8 Eos % (Auto) 3.7 Baso % (Auto) 0.4 Absolute Neuts (auto) 6.1 Absolute Lymphs (auto) 2.00 Nucleated RBC % 0 Sodium 141 Potassium 4.1 Chloride 106 Carbon Dioxide 26.0 Anion Gap 9 BUN 18 Creatinine 0.76 Estim Creat Clear Calc 39.39 Est GFR (MDRD) Af Amer 95 Est GFR (MDRD) Non-Af 79 BUN/Creatinine Ratio 23.8 H Glucose 160 H Lactic Acid 1.9 Calcium 9.0 Total Bilirubin 0.60 Direct Bilirubin 0.12 AST 16 ALT 18 Alkaline Phosphatase 65 Total Protein 7.5 Albumin 3.4 Globulin 4.1 Lipase 58 L Urine Color Urine Clarity Urine pH Ur Specific [place] Urine Protein Urine Glucose (UA) Urine Ketones Urine Occult Blood Urine Nitrite Urine Bilirubin Urine Urobilinogen Ur Leukocyte Esterase Urine RBC Urine WBC Ur Squamous Epith Cells Ur Renal Epithelial Cell Urine Bacteria Hyaline Casts Urine Mucus 08/04/22 06:23 WBC RBC Hgb Hct MCV MCH MCHC RDW Std Deviation RDW Coeff of Bishop Plt Count MPV Immature Gran % (Auto) Neut % (Auto) Lymph % (Auto) [place] % (Auto) Eos % (Auto) Baso % (Auto) Absolute Neuts (auto) Absolute Lymphs (auto) Nucleated RBC % Sodium Potassium Chloride Carbon Dioxide Anion Gap BUN Creatinine Estim Creat Clear Calc Est GFR (MDRD) Af Amer Est GFR (MDRD) Non-Af BUN/Creatinine Ratio Glucose Lactic Acid Calcium Total Bilirubin Direct Bilirubin AST ALT Alkaline Phosphatase Total Protein Albumin Globulin Lipase Urine Color Yellow Urine Clarity Clear Urine pH 6.0 Ur Specific [place] 1.015 Urine Protein Negative Urine Glucose (UA) Normal Urine Ketones Negative Urine Occult Blood Negative Urine Nitrite Negative Urine Bilirubin Negative Urine Urobilinogen Normal Ur Leukocyte Esterase Negative Urine RBC 0 SEEN Urine WBC 0 SEEN Ur Squamous Epith Cells 0 SEEN Ur Renal Epithelial Cell 0-5 SEEN Urine Bacteria 0 SEEN Hyaline Casts 0-5 SEEN Urine Mucus 1+ Radiography Diagnostic Testing: Clinical Impression(s) from Imaging Studies Abdomen/Pelvis CT 08/04/22 05:09 IMPRESSION: Large right inguinal hernia containing small bowel loops. The bowel loops within and proximal to the hernia demonstrate distention with significant adjacent mesenteric stranding/fluid. Findings are concerning for incarceration causing early evidence of obstruction. The appearance is worsened compared with the prior CT. Recommend surgical consultation. Electronically Signed: Clarence Vieira MD at 6:31 EST , ADDENDUM: 08/04/22 0638 IMPRESSION: Large right inguinal hernia containing small bowel loops. The bowel loops within and proximal to the hernia demonstrate distention with significant adjacent mesenteric stranding/fluid. Findings are concerning for incarceration causing early evidence of obstruction. The appearance is worsened compared with the prior CT. Recommend surgical consultation. Electronically Signed: Clarence Vieira MD at 6:31 EST , ADDENDUM: 08/04/22 0645 IMPRESSION: Large right inguinal hernia containing small bowel loops. The bowel loops within and proximal to the hernia demonstrate distention with significant adjacent mesenteric stranding/fluid. Findings are concerning for incarceration causing early evidence of obstruction. The appearance is worsened compared with the prior CT. Recommend surgical consultation. N.B. : Danny Ferrari DO, confirmed on 08/04/2022 06:38:59 (ET) that the healthcare facility has received the radiology report. Electronically Signed: Clarence Vieira MD at 6:31 EST , Discharge Plan Triage Chief Complaint: Abd Pain ED Provider: Danny Ferrari Dx/Rx/DC Orders Clinical Impression: Incarcerated hernia, Hypertension, History of hypothyroidism Primary Care Provider: Nelson Ascencio
[2022-08-04 05:25] LABS: Absolute Neutrophil Count 6.1 X10^3/uL (2.0-7.7); Basophil# 0.04 X10^3/uL; Basophil% 0.4 % (0-1); Eosinophil# 0.34 X10^3/uL; Eosinophils% 3.7 % (0-5); Hematocrit 37.7 % (37-47); Hemoglobin 12.1 g/dL (12.0-15.0); Lymphocyte % 21.7 % (19-41); Mean Corp Hgb Conc 32.1 g/dL (32-36); Mean Corpuscular Hgb 29.7 pg (27.0-32.0); Mean Corpuscular Volume 92.4 fL (81-99); Mean Platelet Vol. 10.6 fl (6.2-12.0); Monocyte# 0.72 X10^3/uL; Monocyte% 7.8 % (0-10); NRBC Flagged by Analyzer 0 % (0-5); Neutrophil % 66.1 % (47-70); Platelet Count 299 K/mm3 (150-450); RBC Distribution Width CV 14.2 % (11.6-14.6); RBC Distribution Width SD 48.4 fl (35.1-43.9); Red Blood Count 4.08 M/mm3 (4.2-5.4); White Blood Count 9.2 K/mm3 (4.4-11.0)
[2022-08-04 05:53] LABS: Lactic Acid 1.9 mmol/L (0.4-1.9)
[2022-08-04 05:54] LABS: AST(SGOT) 16 U/L (15-37); Alanine Aminotransfer ALT/SGPT 18 U/L (13-56); Albumin, Serum 3.4 g/dL (3.2-5.0); Alkaline Phosphatase 65 U/L (45-117); Anion Gap 9 (5-15); BUN 18 mg/dL (7-18); BUN/Creat Ratio 23.8 RATIO (10-20); Bilirubin, Direct 0.12 mg/dL (0.00-0.30); Chloride 106 mmol/L (98-107); Creatinine, Serum 0.76 mg/dL (0.55-1.02); EST Glomerular Filtration Rate 79 mL/min (>60); Est Glom Filt Rate - Afr Amer 95 mL/min (>60); Estimated Creatinine Clearance 39.39 ml/min; Globulin 4.1 g/dL (2.2-4.2); Glucose 160 mg/dL (74-106); Lipase 58 U/L (73-393); Potassium 4.1 mmol/L (3.5-5.1); Protein, Total 7.5 g/dL (6.4-8.2); Sodium Level 141 mmol/L (136-145)
[2022-08-04] MEDS: Morphine 4 MG/ML Syringe IV (05:54)
[2022-08-04] MEDS: Ondansetron 4 MG/2 ML Vial IV (05:55)
[2022-08-04 06:31] LABS: Bacteria 0 SEEN /hpf (None Seen); Red Blood Cells-Urine 0 SEEN /hpf (0-5); Squamous Epithelial Cells - UA 0 SEEN /hpf (5-10); White Blood Cells 0 SEEN /hpf (0-5)
[2022-08-04 06:33] LABS: Color, Urine Yellow (Yellow); Glucose, Dipstick Normal (Normal); Ketone-Dipstick Negative (Negative); Leukocyte Esterase-Dipstick Negative /ul (Negative); Nitrite-Dipstick Negative (Negative); Occult Blood-Urine Negative /ul (Negative); Protein-Dipstick Negative (Negative); Specific Gravity, Urine 1.015 (1.002-1.030); Urine Bilirubin Dipstick Negative (Negative); Urine Clarity Clear (Clear); Urine Urobilinogen Normal (Normal)
[2022-08-04 06:41] LABS: Hyaline Cast 0-5 SEEN /lpf (0-5); Mucous, Urine 1+ /hpf (<or=2+); Renal Epithelial Cells 0-5 SEEN /hpf (0-5)
[2022-08-04 07:27] VITALS: BP 144/72; PULSE 77; RESP 16; O2SAT 91
--- NOTE | 2022-08-04 09:20 | OP.PCM_ITS ---
Report of Operation Date of Procedure: 08/04/22
--- NOTE | 2022-08-04 09:20 | PCM.OPRPT ---
Report of Operation Date of Procedure: 08/04/22
--- NOTE | 2022-08-04 09:37 | PCM.HP.STD ---
HPI - General HPI Narrative FRED ALVAREZ, is a 81 F who presents with abdominal pain. Patient says the pain started this morning. She does have some mild nausea. She says her pain is in her abdomen. She says she had a right inguinal hernia repair few years ago and for the last year she has had a recurrence of this right inguinal hernia. [facility] Medical History Hearing loss, left Hearing loss, right Hernia Hypertension Hypothyroidism Osteoporosis Wears hearing aid in both ears Home Medications lisinopril 5 mg tablet 5 mg PO DAILY 04/08/17 [History Last Taken 08/03/22] calcium carbonate 500 mg calcium (1,250 mg) tablet 500 mg PO BID 11/20/19 [History Last Taken 08/03/22] mpfwobylron-gkxhwmeor-zsv C-Mn 500 mg-400 mg capsule 1 ea PO BID 11/20/19 [History Last Taken 08/03/22] multivit with cqfsxvhz-dxda-ME-lutein 8 mg iron-400 mcg-300 mcg tablet 1 ea PO DAILY 11/20/19 [History Last Taken 08/03/22] cephalexin 500 mg capsule 500 mg PO QHS UTI 08/04/22 [History Last Taken 08/03/22] levothyroxine 137 mcg tablet 137 mcg PO DAILY THYROID 08/04/22 [History Last Taken 08/03/22] Allergy/AdvReac Type Severity Reaction Status Date / Time sulfamethoxazole Allergy Hives Verified 08/04/22 04:56 [From Bactrim] trimethoprim [From Bactrim] Allergy Hives Verified 08/04/22 04:56 Surgical History History of cholecystectomy History of left knee replacement History of total right knee replacement Social History Smoking Status: Never smoker ROS Constitutional Constitutional: Denies anorexia, fatigue or fever(s) Eyes Eyes: Denies blurry vision ENT HEENT: Denies abnormal hearing Cardiovascular Cardiovascular: Denies chest pain Respiratory/Chest Respiratory/Chest: Reports dyspnea; Denies cough Gastrointestinal Gastrointestinal: Reports abdominal pain and nausea; Denies diarrhea, dysphagia or vomiting Genitourinary Genitourinary: Denies change in urinary stream Musculoskeletal Musculoskeletal: Denies abnormal gait Integumentary Integumentary: Denies jaundice Neurologic Neurologic: Denies abnormal gait Psychiatric Psychiatric: Denies anxiety Endocrine Endocrinology: Denies flushing Vital Signs Vital Signs Vital Signs: 08/04/22 04:54 08/04/22 07:27 Temperature 97.5 F L Temperature Source Temporal Pulse Rate 68 77 Respiratory Rate 16 16 Blood Pressure 210/100 H 144/72 H Blood Pressure Mean 136 96 Pulse Ox 97 91 Oxygen Delivery Method Room Air Weight Weight: 194 lb 4.8 oz Body Mass Index (BMI) 33.3 Physical Exam Const oriented x3 Resp normal respiratory effort Cardio regular rate GI soft to palpation GI Narrative: Right inguinal hernia that is reducible Results Lab / Micro Data Result Diagrams: 08/04/22 04:18 08/04/22 04:18 Labs: Laboratory Results - last 24 hr 08/04/22 04:18: WBC 9.2, RBC 4.08 L, Hgb 12.1, Hct 37.7, MCV 92.4, MCH 29.7, MCHC 32.1, RDW Std Deviation 48.4 H, RDW Coeff of Bishop 14.2, Plt Count 299, MPV 10.6, Immature Gran % (Auto) 0.300, Neut % (Auto) 66.1, Lymph % (Auto) 21.7, [place] % (Auto) 7.8, Eos % (Auto) 3.7, Baso % (Auto) 0.4, Absolute Neuts (auto) 6.1, Absolute Lymphs (auto) 2.00, Nucleated RBC % 0 08/04/22 04:18: Sodium 141, Potassium 4.1, Chloride 106, Carbon Dioxide 26.0, Anion Gap 9, BUN 18, Creatinine 0.76, Estim Creat Clear Calc 39.39, Est GFR (MDRD) Af Amer 95, Est GFR (MDRD) Non-Af 79, BUN/Creatinine Ratio 23.8 H, Glucose 160 H, Calcium 9.0, Total Bilirubin 0.60, Direct Bilirubin 0.12, AST 16, ALT 18, Alkaline Phosphatase 65, Total Protein 7.5, Albumin 3.4, Globulin 4.1, Lipase 58 L 08/04/22 04:18: Lactic Acid 1.9 08/04/22 06:23: Urine Color Yellow, Urine Clarity Clear, Urine pH 6.0, Ur Specific [place] 1.015, Urine Protein Negative, Urine Glucose (UA) Normal, Urine Ketones Negative, Urine Occult Blood Negative, Urine Nitrite Negative, Urine Bilirubin Negative, Urine Urobilinogen Normal, Ur Leukocyte Esterase Negative, Urine RBC 0 SEEN, Urine WBC 0 SEEN, Ur Squamous Epith Cells 0 SEEN, Ur Renal Epithelial Cell 0-5 SEEN, Urine Bacteria 0 SEEN, Hyaline Casts 0-5 SEEN, Urine Mucus 1+ Radiology Impression Abdomen/Pelvis CT 08/04/22 05:09 IMPRESSION: Large right inguinal hernia containing small bowel loops. The bowel loops within and proximal to the hernia demonstrate distention with significant adjacent mesenteric stranding/fluid. Findings are concerning for incarceration causing early evidence of obstruction. The appearance is worsened compared with the prior CT. Recommend surgical consultation. Electronically Signed: Clarence Vieira MD at 6:31 EST Reading Location ID and State: [facility] / [place] Tel , Service support , ADDENDUM: 08/04/22 0638 IMPRESSION: Large right inguinal hernia containing small bowel loops. The bowel loops within and proximal to the hernia demonstrate distention with significant adjacent mesenteric stranding/fluid. Findings are concerning for incarceration causing early evidence of obstruction. The appearance is worsened compared with the prior CT. Recommend surgical consultation. Electronically Signed: Clarence Vieira MD at 6:31 EST Reading Location ID and State: [email or web address] / [place] Tel , Service support , ADDENDUM: 08/04/22 0645 IMPRESSION: Large right inguinal hernia containing small bowel loops. The bowel loops within and proximal to the hernia demonstrate distention with significant adjacent mesenteric stranding/fluid. Findings are concerning for incarceration causing early evidence of obstruction. The appearance is worsened compared with the prior CT. Recommend surgical consultation. N.B. : Danny Ferrari DO, confirmed on 08/04/2022 06:38:59 (ET) that the healthcare facility has received the radiology report. Electronically Signed: Clarence Vieira MD at 6:31 EST Reading Location ID and State: [facility] / [place] Tel , Service support , Assessment & Plan Assessment/Plan (1) Recurrent inguinal hernia with obstruction and without gangrene: QUALIFIERS: Laterality: unilateral Qualified Code(s): K40.31 - Unilateral inguinal hernia, with obstruction, without gangrene, recurrent PLAN: The patient CT was reviewed and there is some stranding in the mesentery to the small bowel that is incarcerated in the hernia. When I was called I had the patient placed in Trendelenburg position with ice on the groin as the emergency room physician said he was unable to reduce the hernia. When I came down to see the patient I was easily able to reduce the hernia and the patient's abdominal pain is improving. I believe the patient had obstruction due to this inguinal hernia which is recurrent. I discussed performing repair during this hospitalization. I believe that the bowel has been reduced and her obstruction is resolved I will observe her on the floor for the day and plan on repair tomorrow. I discussed robotic assisted laparoscopic inguinal hernia repair with mesh. I discussed possibly having to resect bowel if there is any compromised bowel that I encountered. I also discussed possibly converting to open although it is a recurrent hernia and I would like to stay laparoscopic if possible. I discussed the risks including modality to bleeding, infection, injury to other organs such as the bowel, bladder, ureter. Patient understands the risks and is willing to proceed. Patient was recently admitted in June with cavitary abscesses of the lungs. I will obtain a chest x-ray and consult ID if necessary. Ino Rajput MD Pager: [facility] [address] [place] [address], [address] [place] [address] Office:
--- NOTE | 2022-08-04 09:44 | RAD_ITS ---
STUDY: X-RAY CHEST REASON FOR EXAM: Female, 81 years old. Recent pneumonia TECHNIQUE: AP and lateral views of the chest. COMPARISON: Comparison is made with prior study dated 07/19/2022. FINDINGS: Minimal residual increased markings at the lung bases suggestive of scarring. Stable thin-walled cavitary density in the medial aspect of the right lung base. There is no demonstrated pleural abnormality. Normal size heart. Normal mediastinum and kimmy. Normal visualized pulmonary arteries. There is atherosclerotic calcification of the aortic arch with tortuosity. There are diffuse degenerative changes of the visualized thoracic spine. Normal visualized ribs, clavicles, and shoulders. There is no demonstrated abnormality of the visualized soft tissue structures of the upper abdomen. RAD/Chest PA and Lateral IMPRESSION: Minimal increased linear markings at the lung bases suggestive of scarring. Stable small thin-walled cavitary lesion in the right medial lung base. Electronically Signed: Mukesh Landry MD at 12:27 EST ,
--- NOTE | 2022-08-04 09:45 | EKG12_ITS ---
Test Reason : PRE OP Blood Pressure : / mmHG Vent. Rate : 077 BPM Atrial Rate : 077 BPM P-R Int : 176 ms QRS Dur : 084 ms QT Int : 418 ms P-R-T Axes : 036 032 027 degrees QTc Int : 473 ms Normal sinus rhythm Normal ECG When compared with ECG of 17-JUN-2022 02:36, No significant change was found Confirmed by EMILE PEREZ, CRAIG ([id number]), index editor AUDREY SMITH ([id number]) on 08/08/2022 9:02:58 AM Referred By: PABLO Confirmed By:CRAIG BAPTISTE MD
[2022-08-04 10:05] VITALS: BP 157/77; PULSE 80; RESP 18; TEMP 36.3; O2SAT 91
[2022-08-04 10:33] VITALS: BMI 32.8
[2022-08-04] MEDS: 0.9% Normal Saline 1,000 ML 60 ML IV (11:24)
[2022-08-04 11:30] VITALS: BP 124/73; PULSE 79; RESP 16; TEMP 36.9; O2SAT 95
[2022-08-04 17:30] VITALS: BP 145/68; PULSE 71; RESP 16; TEMP 36.9; O2SAT 95
[2022-08-04 23:30] VITALS: BP 146/85; PULSE 80; RESP 14; TEMP 36.6; O2SAT 94
[2022-08-04] MEDS: Acetaminophen 325 MG Tablet 650 MG PO (23:44)
[2022-08-05] VITALS (9 sets, daily range): BP systolic 148–175; BP diastolic 72–98; PULSE 58–97; RESP 13–18; TEMP 36.2–37.1; O2SAT 91–97
[2022-08-05] MEDS: 0.9% Normal Saline 1,000 ML 60 ML IV ×2 (02:26→10:49)
[2022-08-05 06:55] LABS: Absolute Lymphocyte Count 1.28 X10^3/uL (0.83-4.51); Absolute Neutrophil Count 3.5 X10^3/uL (2.0-7.7); Basophil# 0.03 X10^3/uL; Basophil% 0.6 % (0-1); Eosinophil# 0.14 X10^3/uL; Eosinophils% 2.6 % (0-5); Hematocrit 34.5 % (37-47); Lymphocyte # 1.28 X10^3/ul (0.83-4.51); Lymphocyte % 23.7 % (19-41); Mean Corp Hgb Conc 31.9 g/dL (32-36); Mean Corpuscular Hgb 29.8 pg (27.0-32.0); Mean Corpuscular Volume 93.5 fL (81-99); Mean Platelet Vol. 10.5 fl (6.2-12.0); Monocyte# 0.44 X10^3/uL; Monocyte% 8.1 % (0-10); NRBC Flagged by Analyzer 0 % (0-5); Neutrophil # 3.49 X10^3/uL (2.7-7.7); Neutrophil % 64.6 % (47-70); Platelet Count 221 K/mm3 (150-450); RBC Distribution Width CV 14.2 % (11.6-14.6); RBC Distribution Width SD 49.4 fl (35.1-43.9); Red Blood Count 3.69 M/mm3 (4.2-5.4); White Blood Count 5.4 K/mm3 (4.4-11.0)
--- NOTE | 2022-08-05 07:12 | PN.SURG_ITS ---
Subjective Subjective Patient reports feeling very gassy but her abdominal pain is resolved. No nausea or vomiting overnight. Objective Data Objective Data Vital Signs: Vital Signs Temp Pulse Resp BP Pulse Ox O2 Del Method 97.9 F 78 14 157/98 H 94 Room Air 08/05/22 05:30 08/05/22 05:30 08/05/22 05:30 08/05/22 05:30 08/05/22 05:30 08/05/22 05:30 Oxygen Delivery Method Room Air Weight: 193 lb 1.999 oz Body Mass Index (BMI) 32.8 Intake & Output: Intake and Output for Last 24 Hours 08/03/22 08/04/22 08/05/22 23:59 23:59 23:59 Intake Total 1120 / 1440 1222 / 1222 Output Total 350 / 750 950 / 950 Balance 770 / 690 272 / 272 Lab / Micro Data Result Diagrams: 08/05/22 06:43 08/04/22 04:18 Labs: Laboratory Results - last 24 hr 08/05/22 06:43: WBC 5.4, RBC 3.69 L, Hgb 11.0 L, Hct 34.5 L, MCV 93.5, MCH 29.8, MCHC 31.9 L, RDW Std Deviation 49.4 H, RDW Coeff of Bishop 14.2, Plt Count 221, MPV 10.5, Immature Gran % (Auto) 0.400, Neut % (Auto) 64.6, Lymph % (Auto) 23.7, [place] % (Auto) 8.1, Eos % (Auto) 2.6, Baso % (Auto) 0.6, Absolute Neuts (auto) 3.5, Absolute Lymphs (auto) 1.28, Nucleated RBC % 0 Radiography Diagnostic Testing: Radiology Impression Chest X-Ray 08/04/22 09:44 IMPRESSION: Minimal increased linear markings at the lung bases suggestive of scarring. Stable small thin-walled cavitary lesion in the right medial lung base. Electronically Signed: Mukesh Landry MD at 12:27 EST , Physical Exam Const oriented x3 Resp normal respiratory effort GI soft to palpation and non-tender Assessment & Plan Assessment/Plan (1) Recurrent inguinal hernia with obstruction and without gangrene: QUALIFIERS: Laterality: unilateral Qualified Code(s): K40.31 - Unilateral inguinal hernia, with obstruction, without gangrene, recurrent PLAN: Patient's inguinal hernia was once again reduced this morning. She reports that she feels things moving along and she had no nausea vomiting or abdominal pain overnight. Plan for robotic right inguinal hernia repair with mesh this morning. Ino Rajput MD Pager: [facility] [address] [place] [address], [address] [place] [address] Office:
[2022-08-05 07:40] LABS: Anion Gap 8 (5-15); BUN 9 mg/dL (7-18); BUN/Creat Ratio 15.4 RATIO (10-20); Calcium,Total 8.3 mg/dL (8.5-10.1); Chloride 111 mmol/L (98-107); Creatinine, Serum 0.58 mg/dL (0.55-1.02); EST Glomerular Filtration Rate 106 mL/min (>60); Est Glom Filt Rate - Afr Amer 128 mL/min (>60); Estimated Creatinine Clearance 39.39 ml/min; Glucose 100 mg/dL (74-106); Potassium 3.6 mmol/L (3.5-5.1); Sodium Level 143 mmol/L (136-145)
--- NOTE | 2022-08-05 09:16 | OP.PCM_ITS ---
Report of Operation Date of Procedure: 08/05/22 Pre-Operative Diagnosis: Recurrent right groin hernia with incarceration and ob struction Post-Operative Diagnosis: Same Surgery/Procedure Performed:: Robotic assisted laparoscopic right inguinal hernia repair with mesh Description of Procedure: Patient was brought back to the operating and general anesthesia was induced. A Flores catheter was placed. The abdomen was prepped and draped in usual sterile fashion. Midline incision was created superior to the umbilicus and the fascia was grasped and elevated. A Veress needle was placed into the abdomen and a drop test was performed. Abdomen was then insufflated 15 mmHg and the Veress needle was removed. The port was placed through the incision and the camera space to the port and it was inspected for injuries and there were none. The patient was placed in Trendelenburg position and under direct visualization an 8 mm port was placed in the right lateral abdomen in the left lateral abdomen. The robot was docked. The hernia contents were reduced. The patient appeared to have mesh on the anterior abdominal wall. Just inferior to this an incision was made in the peritoneum and deepened to the hernia using electrocautery sciss ors. Next the hernia sac was reduced by lysing its adhesions. Dissection was carried inferiorly. The pubic tubercle was exposed. Next a full piece of ProGrip mesh was placed into the right inguinal region and unfolded over the hernia defect. It was sutured to the pubic tubercle inferiorly and sutured to the anterior abdominal wall twice superiorly using 0 Vicryl suture.. A completely cover the defect with good coverage. Next the peritoneum was reapproximated using running 3-OV lock suture. There was a small opening in the peritoneum inferiorly and this was closed with another 3 OV lock suture. At the end of the procedure the peritoneum completely cover the mesh. Next the robot was undocked and the patient was placed in level position and the air was allowed to desufflate from the abdomen and the ports were removed. The incisions were injected with local anesthetic and closed with interrupted 4-0 Monocryl suture. Steri-Strips and bandages were applied. The Flores was removed and the case and patient was taken to PACU in stable condition. Grafts/Implants Used: ProGrip mesh in the right inguinal region Admit VTE Documentation VTE Mechan Device Prophylaxis: SCD's
--- NOTE | 2022-08-05 13:10 | CASEMGMT ---
IAIN RICH DC Planning Assessment: Face to Face with patient for initial transition planning/care coordination assessment.?Pt alert, oriented x3, and sitting up in bed. Pt's daughter at bedside. IAIN RICH introduced self and role at [facility], pt voices understanding and is agreeable to participating in assessment in the presence of her daughter.? Care providers, pharmacy,?and demographics verified. ? Admitting Dx: Right inguinal hernia w/obstruction PCP: Son[facility] Specialists: Crispin (urology), Gerardo (ENT), has seen Dr. Iraheta in the past. Preferred Pharmacy: [facility] retail Insurance: [employer] Prescription Benefit:?yes Living Will/HPOA: Yes/Yes-spouse Michael is first, daughter Kandace is 2nd LNOK: spouse Michael, daughter Kandace Living Arrangements: pt lives with spouse in a single story home with a first floor set-up and three steps to enter. Pt states she is independent with all ADLs including self care and household tasks. Transportation: Pt states she drives intermittently and spouse Michael is the primary road oiling truck driver. DME: shower chair, grab bars, cane, walker HHC/SNF: Denies any previous ? Plan: Pt plans to return with family support at discharge and denies any needs. Will continue to monitor and assist if further DC needs are identified. Marisol Carty RN CM
--- NOTE | 2022-08-05 15:53 | CASEMGMT ---
IAIN RICH Follow-up: Pt and pt's daughter at bedside notified that advanced directives are not on file in our EMR. Requested forms be brought back in for scanning. Pt's daughter states she will email this medical writer with the documents to be placed in the EMR. Will follow-up when received. Marisol Carty RN CM
[2022-08-05] MEDS: Levothyroxine 137 MCG Tablet PO (18:38)
[2022-08-05] MEDS: Cephalexin 500 MG Capsule PO (22:36)
[2022-08-06 03:39] VITALS: BP 160/84; PULSE 85; RESP 18; TEMP 36.7; O2SAT 96
[2022-08-06] MEDS: 0.9% Normal Saline 1,000 ML 60 ML IV (03:43)
[2022-08-06] MEDS: Acetaminophen 325 MG Tablet 650 MG PO (03:43)
[2022-08-06] MEDS: Levothyroxine 137 MCG Tablet PO (05:49)
[2022-08-06 08:32] VITALS: BP 135/84; PULSE 80; RESP 15; TEMP 37.2; O2SAT 93
[2022-08-06] MEDS: Lisinopril 5 MG Tablet PO (08:34)
[2022-08-06] MEDS: Multivitamins,Ther W-Minerals Tablet 1 TABLET PO (08:34)
[2022-08-06] MEDS: Calcium (Elemental) 500 MG Tablet PO (08:34)
--- NOTE | 2022-08-06 11:06 | PCM.PN.SRG ---
Subjective Subjective Patient had a large bowel movement. She is tolerating regular diet. She has no abdominal or groin pain. Objective Data Objective Data Vital Signs: Vital Signs Temp Pulse Resp BP Pulse Ox O2 Del Method O2 Flow Rate 99.0 F 80 15 135/84 H 93 Room Air 2 08/06/22 08:32 08/06/22 08:32 08/06/22 08:32 08/06/22 08:32 08/06/22 08:32 08/06/22 08:32 08/05/22 10:50 Oxygen Flow Rate (L/min) 2 Oxygen Delivery Method Room Air Weight: 193 lb 1.999 oz Body Mass Index (BMI) 32.8 Intake & Output: Intake and Output for Last 24 Hours 08/04/22 08/05/22 08/06/22 23:59 23:59 23:59 Intake Total 1120 / 1440 2305 / 2305 996 / 996 Output Total 350 / 750 1650 / 1650 Balance 770 / 690 655 / 655 996 / 996 Lab / Micro Data Result Diagrams: 08/05/22 06:43 08/05/22 06:43 Physical Exam Const oriented x3 Resp normal respiratory effort GI soft to palpation and non-tender Assessment & Plan Assessment/Plan (1) Recurrent inguinal hernia with obstruction and without gangrene: QUALIFIERS: Laterality: unilateral Qualified Code(s): K40.31 - Unilateral inguinal hernia, with obstruction, without gangrene, recurrent PLAN: Patient doing well after inguinal hernia repair. I will discharge patient home. Ino Rajput MD Pager: [facility] [address] [place] [address], [address] [place] [address] Office:
--- NOTE | 2022-08-06 11:16 | PCM.DC.SUM ---
Providers Date of Admission: 08/04/22 Primary Care Physician: Dr. Nelson Ascencio MD Reason For Visit: RIGHT INGUNAL HERNIA W/ OBSTRUCTION Diagnosis Discharge Diagnosis (1) Recurrent inguinal hernia with obstruction and without gangrene: Status: Acute Code(s): K40.31 - Unilateral inguinal hernia, with obstruction, without gangrene, recurrent Qualifiers: Laterality: unilateral Qualified Code(s): K40.31 - Unilateral inguinal hernia, with obstruction, without gangrene, recurrent Plan: Patient doing well after inguinal hernia repair. I will discharge patient home. Ino Rajput MD Pager: [facility] [address] [place] [address], [address] [place] [address] Office: Medications at Discharge Home Medications lisinopril 5 mg tablet 5 mg PO DAILY 04/08/17 calcium carbonate 500 mg calcium (1,250 mg) tablet 500 mg PO BID 11/20/19 qxevyjgpwqb-vpeoyljxh-kpo C-Mn 500 mg-400 mg capsule 1 ea PO BID 11/20/19 multivit with ocalgkgu-jzim-DW-lutein 8 mg iron-400 mcg-300 mcg tablet 1 ea PO DAILY 11/20/19 cephalexin 500 mg capsule 500 mg PO QHS UTI 08/04/22 levothyroxine 137 mcg tablet 137 mcg PO DAILY THYROID 08/04/22 Hospital Course Summary of Care Provided Hospital Course: The patient was admitted with an obstructed inguinal hernia. I was able to reduce the hernia in the emergency room the following day she was taken for hernia repair. She had robotic assisted inguinal hernia repair and the following day she was tolerating diet with no abdominal pain discharged home. Weight / BMI Weight Weight: 193 lb 1.999 oz Body Mass Index (BMI) 32.8 ABG / Lab / Microbiology Data Result Diagrams: 08/05/22 06:43 08/05/22 06:43 D/C Instructions Discharge Diet: Light diet - advance as tolerated Discharge Activity: May Not Drive (for 2-3 days or while taking narcotic pain meds.) and May Shower (with the bandage in place 1-2 days after surgery.) Lifting Restrictions: 20 pounds for 6 weeks Additional Activity Instructions: Climbing stairs is fine, walking is encouraged. Sitting in bed may be uncomfortable. Sitting up using your lateral muscles (sitting up sideways) is usually more comfortable. Pain medications may cause nausea, you should typically eat light foods as you take your pain medications. Pain medications may also cause constipation. If you have difficulty with this, discuss with your doctor. Call your doctor if your incision/area has: Continuous Slow Oozing, Sudden Increased Bleeding, Increased Pain/ Swelling, Increased Redness and Foul Smelling Discharge Call your doctor if you observe: Fever of 101 or Higher Suture Line Care: Avoid Pulling/Pushing and Avoid Pinching/Bending Remove Dressing in: 2 days (Remove clear bandages in 2 days, remove Steri-Strips in 7 to 10 days.) Cleanse incision/area with: Soap & Water Please Follow Up With: Ino Rajput MD When: Please call to schedule 2 week follow up appointment. [phone] Meaningful Use Info Meaningful Use Diagnoses (Choose all that apply): None applicable Discharge Plan Admission Admit Date/Time: 08/04/22 09:12 Attending Provider: Ino Rajput Primary Care Provider: Nelson Ascencio Discharge Orders/Prescriptions Prescriptions: Continued lisinopril 5 MG tablet 5 mg PO DAILY calcium carbonate 500 MG tablet 500 mg PO BID dtkrlzuyahe-tbrjoglta-qcz C-Mn 1 EACH capsule 1 ea PO BID uutkvryx-hux-koul-FA-lutein 1 EACH tablet 1 ea PO DAILY levothyroxine 137 mcg tablet 137 mcg PO DAILY cephalexin 500 mg capsule 500 mg PO QHS Referrals / Follow Up: Nelson Ascencio MD [Primary Care Provider] - Disposition Disposition (needs filled in before D/C Order can be placed): Home, Self Care
[2022-08-06 11:51] VITALS: BP 135/84; PULSE 80; RESP 15; TEMP 37.2; O2SAT 93
== END 2022-08-06 14:28 | disposition home or self-care (01) | DRG 352 ==
LOC: ED 05:39 → ACINP 08:12 → ED 10:21 → PCU 17:58
PROVIDERS: Admitting Provider Surgery; Emergency Provider Emergency Medicine; PCP Family Medicine; Visit Provider Surgery
PROC: 0YU50JZ Supplement Right Inguinal Region with Synthetic Substitute, Open Approach (ICD-10-PCS; principal; 2022-08-05 07:10)
DX: K40.31 Unilateral inguinal hernia, with obstruction, without gangrene, recurrent (principal); E03.9 Hypothyroidism, unspecified; I10 Essential (primary) hypertension; M81.0 Age-related osteoporosis without current pathological fracture
CPT/HCPCS: 36415; 71046; 74177; 80048; 80076; 81001; 83605; 83690; 85025; 93005; 99285; J7030; Q9967; A4216; J2405

== ENCOUNTER → 2022-08-21 | Outpatient (CLI) | payer MEDICARE, SELFPAY ==
[2022-08-21 10:32] LABS: Color, Urine Yellow (Yellow); Glucose, Dipstick Normal (Normal); Ketone-Dipstick Negative (Negative); Leukocyte Esterase-Dipstick 500 /ul (Negative); Nitrite-Dipstick Positive (Negative); Occult Blood-Urine 50 /ul (Negative); Protein-Dipstick 30 mg/dl (Negative); Urine Bilirubin Dipstick Negative (Negative); Urine Clarity Sl. Cloudy (Clear); Urine Urobilinogen Normal (Normal)
[2022-08-21 10:40] LABS: Bacteria 2+ /hpf (None Seen); Mucous, Urine 1+ /hpf (<or=2+); Red Blood Cells-Urine 0-5 SEEN /hpf (0-5); Squamous Epithelial Cells - UA 0-5 SEEN /hpf (5-10); White Blood Cells 25-50 SEEN /hpf (0-5)
== END | disposition home or self-care (01) ==
LOC: PAVLAB 09:58
PROVIDERS: PCP Family Medicine; Referring Provider Surgery; Visit Provider Surgery
DX: R35.0 Frequency of micturition (principal)
CPT/HCPCS: 81001